=== PATIENT | male | born 1930 | race Caucasian/White ===

== ENCOUNTER 2017-05-21 13:54 | Emergency (ER) | payer MEDICARE, OTHER ==
[2017-05-21 14:38] LABS: #Eosinphils 0.2 thou/uL (0.0-0.7); #Lymphocytes 2.3 thou/uL (1.20-3.40); #Monocytes 0.8 thou/uL (0.11-0.59); #Neutrophils 4.9 thou/uL (1.40-6.50); %Basophils 0.4 % (0.0-1.0); %Eosinophils 2.5 % (0.0-10.0); %Lymphocytes 28.1 % (21.0-51.0); %Monocytes 10.1 % (0.0-10.0); %Neutrophils 58.9 % (42.0-75.0); Hemoglobin 13.8 g/dL (14.0-18.0); Mean Corpuscular Hemoglobin 32.5 pg (27.0-31.0); Mean Platelet Volume 7.7 fL (7.4-10.4); Platelet Count 173 thou/uL (130-400); Red Blood Cell (RBC) Count 4.27 mill/uL (4.70-6.10); White Blood Cell (WBC) Count 8.3 thou/uL (4.8-10.8)
[2017-05-21 14:43] LABS: PTT 44.8 SEC (22.9-36.1)
[2017-05-21 14:56] LABS: ALT (SGPT) 12 U/L (8-55); AST (SGOT) 21 U/L (5-34); Albumin 3.6 g/dL (3.4-4.8); Alkaline Phosphatase 78 U/L (40-150); Anion Gap 11 mmol/L (10-20); BUN (Urea Nitrogen) 18 mg/dL (8.4-25.7); Bilirubin, Total 1.4 mg/dL (0.2-1.2); Calc. Creatinine Clearance 0 mL/min (70-130); Calcium 9.2 mg/dL (7.8-10.44); Carbon Dioxide 26 mmol/L (23-31); Chloride 109 mmol/L (98-107); Estimated GFR-MDRD 48; Globulin 3.1 g/dL (2.4-3.5); Glucose 100 mg/dL (83-110); Potassium 4.8 mmol/L (3.5-5.1); Protein, Total 6.7 g/dL (5.8-8.1); Sodium 141 mmol/L (136-145)
--- NOTE | 2017-05-21 15:09 | ULT ---
RIGHT UPPER EXTREMITY VENOUS DUPLEX SONOGRAM: History: Right arm pain and edema. Bruising. FINDINGS: Good color and spectral doppler flow are present within the internal jugular and subclavian veins and the brachial and axillary veins. The cephalic and basilic veins are compressible without evidence of clot. IMPRESSION: No sonographic evidence of DVT within the right upper extremity. POS: [facility]
[2017-05-21] MEDS ORDERED: Bacitracin Zinc 1 Packet ONE (16:04)
[2017-05-21] MEDS ORDERED: Phytonadione 10 MG/ML AMP PO SCH (16:15)
== END 2017-05-21 16:37 | disposition home or self-care (01) ==
LOC: ERS 13:54
DX: S50.11XA Contusion of right forearm, initial encounter (principal); E78.5 Hyperlipidemia, unspecified; I10 Essential (primary) hypertension; X58.XXXA Exposure to other specified factors, initial encounter; D68.32 Hemorrhagic disorder due to extrinsic circulating anticoagulants; T45.515A Adverse effect of anticoagulants, initial encounter; M79.601 Pain in right arm
CPT/HCPCS: 36415; 80053; 85025; 85610; 85730; J3430

== ENCOUNTER 2017-12-09 08:46 | Inpatient (IN) | payer MEDICARE, OTHER ==
--- NOTE | 2017-12-09 09:28 | RAD ---
AP CHEST: Indication: History of shortness of breath. Comparison: 11-29-15 FINDINGS: There is cardiomegaly with pulmonary vascular congestion and mild central edema. There is small bilat eral pleural effusion. Dual-lead pacemaker overlies the left chest wall. No acute osseous abnormality is evident. IMPRESSION: Findings suggestive of CHF. POS: [facility]
[2017-12-09 09:30] LABS: #Eosinphils 0.1 thou/uL (0.0-0.7); #Lymphocytes 1.8 thou/uL (1.20-3.40); #Monocytes 0.7 thou/uL (0.11-0.59); #Neutrophils 5.6 thou/uL (1.40-6.50); %Basophils 0.5 % (0.0-1.0); %Eosinophils 1.8 % (0.0-10.0); %Lymphocytes 21.4 % (21.0-51.0); %Monocytes 8.1 % (0.0-10.0); %Neutrophils 68.3 % (42.0-75.0); Hemoglobin 14.6 g/dL (14.0-18.0); Mean Corpuscular HGB CONC 31.6 g/dL (32.0-36.0); Mean Platelet Volume 8.3 fL (7.4-10.4); Platelet Count 150 thou/uL (130-400); RBC Distribution Width 12.8 % (11.5-14.5); Red Blood Cell (RBC) Count 4.42 mill/uL (4.70-6.10); White Blood Cell (WBC) Count 8.3 thou/uL (4.8-10.8)
[2017-12-09 09:51] LABS: CKMB 3.8 ng/mL (0-6.6); Troponin I Less than 0.010 ng/mL (< 0.028)
[2017-12-09 09:56] LABS: ALT (SGPT) 23 U/L (8-55); AST (SGOT) 32 U/L (5-34); Albumin 3.6 g/dL (3.4-4.8); Alkaline Phosphatase 87 U/L (40-150); Anion Gap 15 mmol/L (10-20); BUN (Urea Nitrogen) 14 mg/dL (8.4-25.7); Bilirubin, Total 1.7 mg/dL (0.2-1.2); Calc. Creatinine Clearance 0 mL/min (70-130); Calcium 8.8 mg/dL (7.8-10.44); Carbon Dioxide 18 mmol/L (23-31); Chloride 112 mmol/L (98-107); Estimated GFR-MDRD 54; Globulin 3.2 g/dL (2.4-3.5); Glucose 112 mg/dL (83-110); Potassium 4.4 mmol/L (3.5-5.1); Protein, Total 6.8 g/dL (5.8-8.1); Sodium 141 mmol/L (136-145)
[2017-12-09] MEDS ORDERED: Furosemide 40 MG/4 ML VIAL ONE (09:57)
[2017-12-09] MEDS ORDERED: Nitroglycerin 2% Ointment 1 INCH/1 GM Packet ONE (09:57)
[2017-12-09 12:57] VITALS: BMI 36.6
[2017-12-09] MEDS ORDERED: Acetaminophen 500 MG TAB PO PRN (14:06)
[2017-12-09] MEDS ORDERED: Ondansetron HCl/PF 4 MG/2 ML Vial IVP PRN (14:06)
[2017-12-09] MEDS ORDERED: Ondansetron ODT 4 MG TAB PO PRN (14:06)
[2017-12-09] MEDS ORDERED: cloNIDine 0.1 MG TAB PO PRN (14:06)
[2017-12-09] MEDS ORDERED: hydrALAZINE 20 MG/ML VIAL SLOW IVP PRN (14:06)
[2017-12-09] MEDS: Furosemide 40 MG/4 ML VIAL SLOW IVP SCH (15:11)
--- NOTE | 2017-12-09 15:21 | HP ---
PRIMARY CARE PROVIDER: Dr. Brittni High at [facility]. PRIMARY HEDDLE MACHINE OPERATOR: Dr. Torrey Duenas. CHIEF COMPLAINT: Shortness of breath and lower extremity swelling. HISTORY OF PRESENT ILLNESS: This is an 87-year-old male who presented to [facility] Emergency Department complaining of approximately 3-4 day history of increased shor tness of breath, decreased exercise tolerance and associated lower extremity edema. The patient stat es he normally can walk up to 100 yards at his home, but over the last several days could only do mario roximately 20 yards before becoming extremely short of breath. The patient admitted to mainly nonpro ductive cough. No fever, chills or exposure history. The patient states he has a home prescription for Lasix to be used as needed for lower extremity swelling, but states he did not take the medicatio n when he noticed swelling of his lower legs. The patient admits to history of atrial fibrillation, undergoing pacemaker placement with most recent cardiology visit in 03/2017. The patient underwent e chocardiogram evaluation during this visit showing a preserved ejection fraction of 50%-55%. The pat ient also underwent interrogation of his pacemaker device showing atrial fibrillation approximately 6 0% of the time. The patient was increased on flecainide as well as placed on anticoagulation with Co umadin. The patient states he has been compliant with his medication regimen. The patient denied an y specific dietary indiscretion, but does states that he drinks large quantities of water. The patie nt denies any nausea, vomiting or diarrhea. The patient denied any specific chest pain, unilateral w eakness, or dysuria. In the emergency room, the patient underwent general evaluation with chest imag ing showing pulmonary edema. The patient received IV Lasix and transdermal nitroglycerin after eleva blanche BNP over 1700 was noted. The patient was transferred to the telemetry unit for further evaluatio n. PAST MEDICAL HISTORY: 1. Atrial fibrillation on antiarrhythmic and anticoagulation therapy. 2. Hypertension. 3. Hyperlipidemia. 4. Sick sinus syndrome, status post pacemaker placement. PAST SURGICAL HISTORY: 1. Status post pacemaker placement. 2. Status post left total hip arthroplasty. 3. Status post hemicolectomy secondary to diverticulitis. 4. Status post hernia repair. 5. Status post EGD/colonoscopy with Medel's metaplasia. CURRENT MEDICATIONS: 1. Enteric coated aspirin 81 mg p.o. at bedtime. 2. Lipitor 20 mg p.o. at bedtime. 3. Coreg 25 mg p.o. b.i.d. 4. Flecainide 100 mg p.o. b.i.d. 5. Lasix 20 mg p.o. b.i.d. 6. Lisinopril 20 mg p.o. b.i.d. 7. Protonix 40 mg p.o. daily. 8. Potassium chloride 10 mEq p.o. daily. 9. Coumadin 5 mg half a tab every Saturday, Saturday, , Saturday, and Saturday with 5 mg on and Saturday. ALLERGIES: No known drug allergies. FAMILY HISTORY: Father with history of an aneurysm. Mother of complications of old age. SOCIAL HISTORY: Patient resides in [place], [place]. . Uses smokeless tobacco weekly. Ambula tory with use of a cane. No alcohol or illicit drug use. REVIEW OF SYSTEMS: The following complete review of systems was negative, unless otherwise mentioned in the HPI or below: Constitutional: Weight loss or gain, ability to conduct usual activities. Skin: Rash, itching. Eyes: Double vision, pain. ENT/Mouth: Nose bleeding, neck stiffness, pain, tenderness. Cardiovascular: Palpitations, dyspnea on exertion, orthopnea. Respiratory: Shortness of breath, wheezing, cough, hemoptysis, fever or night sweats. Gastrointestinal: Poor appetite, abdominal pain, heartburn, nausea, vomiting, constipation, or diarr hea. Genitourinary: Urgency, frequency, dysuria, nocturia. Musculoskeletal: Pain, swelling. Neurologic/Psychiatric: Anxiety, depression. Allergy/Immunologic: Skin rash, bleeding tendency. Otherwise negative except as stated per HPI. PHYSICAL EXAMINATION: VITAL SIGNS: On admission, blood pressure 152/96, pulse 75, respiratory rate 22, temperature 97.3 de grees Fahrenheit, O2 saturation 98% on 2 liters per minute by nasal cannula. GENERAL APPEARANCE: This is an 87-year-old male, alert and oriented x3, pleasant, conversa nt, in mild respiratory distress. HEENT: Pupils are equal, round, and reactive to light and accommodation. Extraocular muscles are in tact. No scleral icterus, no conjunctival injection. Nares patent. OP is clear. Teeth in fair rep air. NECK: Supple, no cervical adenopathy, no thyromegaly, no carotid bruits, no JVD appreciated. Cervic al spine with full active and passive range of motion. No meningeal signs appreciated. CHEST: Bibasilar crackles. Diminished breath sounds in the bases. CARDIOVASCULAR: S1, S2 with distant heart sounds. ABDOMEN: Obese, soft, nontender, nondistended. Landmarks are difficult to palpate due to patient's body habitus. Bowel sounds are positive in all four quadrants. EXTREMITIES: Bilateral pitting edema to the proximal shins. Pulses palpable distally at the dorsali s pedis, posterior tibial, and popliteal arteries bilaterally. Capillary refill less than 2 seconds. NEUROLOGIC: Cranial nerves II-XII are grossly intact. No focal or lateralizing signs appreciated. PERTINENT LABORATORY DATA AND IMAGING DATA: Sodium 141, potassium 4.4, chloride 112, CO2 of 18, BUN 14, creatinine 1.26 with estimated GFR 54, glucose 112, calcium 8.8, total bilirubin 1.7, AST 32, ALT of 23, alkaline phosphatase 87, troponin I 0.010. BNP 1796 previously noted 188, 06/04/2001; 220 in 2017. CBC showed a white blood cell count of 8.3, hemoglobin 14.6, hematocrit 46, MCV 105, platelet count 150 with normal differential. D-dimer 0.58. Portable chest x-ray dated 12/09/2017 showed luz marina ateral pulmonary edema. Dual lead pacemaker noted. EKG dated 12/09/2017 by my interpretation shows atrial fibrillation with heart rates in the 90s. Left bundle branch block pattern noted. ASSESSMENT AND PLAN: 1. Acute congestive heart failure exacerbation. Suspect diastolic component in conjunction with his tory of atrial fibrillation as underlying etiology. We will repeat 2D transthoracic echocardiogram t o assess ejection fraction. Continue Lasix 40 mg IV b.i.d. Consult Cardiology Service for further e valuation and recommendations for management. 2. Sick sinus syndrome with pacemaker placement. We will interrogate current pacemaker device for r eview of underlying rhythm. The patient may need additional evaluation by Electrophysiology Service if high percentage of rhythm related to atrial fibrillation. Continue telemetry monitoring. 3. Atrial fibrillation with chronic anticoagulation. We will continue Coumadin to maintain INR of 2 -3. Continue Flecainide 100 mg p.o. b.i.d. 4. Hypertension. Resume home antihypertensive regimen and monitor clinical response. 5. Chronic kidney disease stage 3. Avoid nephrotoxic agents and limit contrast exposure. Continue close monitoring of renal function in the context of ongoing diuretic therapy. 6. Prophylaxis. Sequential compression devices while in bed. Pepcid 20 mg p.o. b.i.d. 7. Code status is FULL. Surrogate medical decision maker is patient's spouse.
[2017-12-09 15:31] LABS: Prothrombin Time 38.6 SEC (12.0-14.7)
[2017-12-09] MEDS ORDERED: Warfarin Sodium 2.5 MG TAB PO SCH (17:00)
--- NOTE | 2017-12-09 18:48 | CON ---
DATE OF CONSULTATION: 12/09/2017 REASON FOR CONSULTATION: Shortness of breath. PRIMARY IC DESIGN MANAGER: Dr. Torrey Duenas. HISTORY OF PRESENT ILLNESS: Mr. Saavedra is an 87-year-old gentleman who has been seen and evaluated by Dr. Torrey Duenas. He has a history of atrial fibrillation in addition to sick sinus syndrome, status p ost pacemaker. He recently presented with shortness of breath. He states this has slowly been noted over the last several days to weeks. He also complained of lower extremity edema, PND, and orthopne a. Patient does have a history of paroxysmal atrial fibrillation. He is currently on Coumadin in additi on to flecainide. PAST MEDICAL HISTORY: As above, hypertension, hyperlipidemia, total hip arthroplasty, and hernia rep air. MEDICATIONS: Lipitor, Coreg, flecainide, Lasix, lisinopril, Protonix, potassium, Coumadin, and aspir in. ALLERGIES: None. SOCIAL HISTORY: He is currently . No current alcohol use. REVIEW OF SYSTEMS: Ten-point review of systems is reviewed and as above, otherwise negative. PHYSICAL EXAMINATION: GENERAL: The patient is obese. VITAL SIGNS: Blood pressure 140/81, pulse 74, temperature 97.7. NEUROLOGIC: The patient is alert and oriented times 3 with no focal neurologic deficits. HEENT: Sclerae without icterus. Mouth has moist mucous membranes with normal pallor. NECK: No JVD. Carotid upstroke brisk. No bruits bilaterally. LUNGS: Crackles noted bilaterally. BACK: No scoliosis or kyphosis. CARDIAC: Regular rate and rhythm with normal S1 and S2. No S3 or S4 noted. No significant rubs, murmurs, thrills, or gallops noted throughout the precordium. PMI is not displaced. There is no parasternal heave. ABDOMEN: Soft, nontender, nondistended. No peritoneal signs present. No hepatosplenomegaly. No abnormal striae. EXTREMITIES: 2+ femoral and 2+ dorsalis pedis pulses. No cyanosis, clubbing, or edema. SKIN: No gross abnormalities. PERTINENT LABORATORY DATA: Hemoglobin 14.6, creatinine 1.26, BNP of 1796. IMPRESSION: 1. Acute on chronic diastolic heart failure. 2. Atrial fibrillation. RECOMMENDATIONS: Mr. Saavedra's last LVEF appeared normal. This is likely a component of diastolic dys function. We will need education on low salt diet and decrease fluid intake. He is currently on Las ix 40 mg IV b.i.d. We will interrogate his pacemaker. Further recommendations per Dr. Torrey Duenas in a.m.
[2017-12-09] MEDS ORDERED: Famotidine 20 MG TAB PO SCH (21:00)
[2017-12-09] MEDS: Famotidine 20 MG TAB PO SCH (21:12)
[2017-12-09] MEDS: Flecainide 50 MG TAB PO SCH (21:12)
[2017-12-09] MEDS: Carvedilol 25 MG TAB PO SCH (21:12)
[2017-12-09] MEDS: Atorvastatin Calcium 20 MG TAB PO SCH (21:12)
[2017-12-09] MEDS: Lisinopril 20 MG TAB PO SCH (21:13)
[2017-12-09 23:18] LABS: Platelet Count 143 thou/uL (130-400)
[2017-12-10 05:38] LABS: INR-International Normal Ratio 3.7; Prothrombin Time 36.4 SEC (12.0-14.7)
[2017-12-10 05:44] LABS: Anion Gap 11 mmol/L (10-20); BUN (Urea Nitrogen) 17 mg/dL (8.4-25.7); Calc. Creatinine Clearance 63 mL/min (70-130); Calcium 8.5 mg/dL (7.8-10.44); Carbon Dioxide 25 mmol/L (23-31); Chloride 110 mmol/L (98-107); Estimated GFR-MDRD 53; Glucose 89 mg/dL (83-110); Magnesium 1.6 mg/dL (1.6-2.6); Potassium 3.8 mmol/L (3.5-5.1); Sodium 142 mmol/L (136-145)
[2017-12-10 05:49] LABS: Band 5 % (5-11); Eosinophils 4 % (0-10); Hemoglobin 13.3 g/dL (14.0-18.0); Lymphocytes 18 % (21-51); MDiff Complete? YES; Mean Corpuscular HGB CONC 31.8 g/dL (32.0-36.0); Mean Corpuscular Hemoglobin 32.5 pg (27.0-31.0); Mean Platelet Volume 8.1 fL (7.4-10.4); Monocytes 4 % (0-10); Neutrophil 69 % (42-75); PLT Morphology Comment Appears Adequate; Platelet Count 136 thou/uL (130-400); RBC Distribution Width 12.8 % (11.5-14.5); Red Blood Cell (RBC) Count 4.08 mill/uL (4.70-6.10); White Blood Cell (WBC) Count 7.9 thou/uL (4.8-10.8)
[2017-12-10] MEDS: Furosemide 40 MG/4 ML VIAL SLOW IVP SCH ×2 (06:40→13:45)
--- NOTE | 2017-12-10 08:47 | PDOC.CTH ---
<Susana Spivey - Last Filed: 12/10/17 08:42> Cardiology Progress Note - Subjective The pt seen and examined. No overnight events. No cardiac complaints. He stated he can breath better today. He never been referred to CHF clinic before. - Objective Vital Signs Temp Pulse Resp BP BP Pulse Ox 12/10/17 04:00 98.5 F 75 18 118/72 95 12/09/17 21:13 126/79 Weight 233 lb 12/09/17 12/10/17 12/11/17 06:59 06:59 06:59 Intake Total 480 Output Total 2675 Balance -2195 - Physical Examination General/Neuro: alert & oriented x3 Neck: no JVD present Lungs: other: (diminished at bases) Heart: other: (irregular) Abdomen: soft Extremities: other: (No edema) - Telemetry Telemetry Rhythm: Afib with HR 80s - Labs Result Diagrams: 12/10/17 05:16 12/10/17 05:16 Troponin/CKMB CK-MB (CK-2) 3.8 ng/mL (0-6.6) 12/09/17 09:04 Troponin I Less than 0.010 ng/mL (< 0.028) 12/09/17 09:04 - Assessment/Plan 1. Acute on Chronic diastolic HF - Improving with Lasix 40mg IV BID, Coreg 25mg BId, and Lisinopril 20mg BID. Cont. to monitor. 2. Afib - well controlled HR with Flecainide 100mg BID and Coumadin, which managed by PCP. ASA is stopped since he is on Coumadin and his age. 3. HTN - stable with current med. 4. PM placement 05/17 SSS - recent interrogation showed normal. 5. Hyperlipidemia - on Lipitor MAR reviewed * Echo in 03/2017 showed EF 55%, mild LAE, mild AI, mild-mod TR, mild PI, and trace MR. * Stress test in 2016 showed normal. Review of Systems - Review of Systems Constitutional: reports: weakness EENTM: reports: no symptoms reported Respiratory: reports: no symptoms reported Cardiac (ROS): reports: no symptoms reported ABD/GI: reports: no symptoms reported : reports: no symptoms reported Musculoskeletal: reports: no symptoms reported <Bernice Duenas - Last Filed: 12/10/17 10:28> Cardiology Progress Note - Objective Vital Signs Temp Pulse Resp BP Pulse Ox 12/10/17 04:00 98.5 F 75 18 118/72 95 Weight 233 lb 12/09/17 12/10/17 12/11/17 06:59 06:59 06:59 Intake Total 480 Output Total 2675 Balance -2195 - Labs Result Diagrams: 12/10/17 05:16 12/10/17 05:16 Troponin/CKMB CK-MB (CK-2) 3.8 ng/mL (0-6.6) 12/09/17 09:04 Troponin I Less than 0.010 ng/mL (< 0.028) 12/09/17 09:04 - Assessment/Plan Pt. seen and eval. by me. He is feeling better after some diuresis. Further review indicates normal pacemaker function on the last transtelephnic eval. in October but it appears that he is in chronic atrial fibrillation and occasionallly has increased ventricular response to the A-fib. He has remained on coumadin but it does not appear that the Flecainide if beneficial. The atrial fib. likely has contributed to tis CHF event. He has not had a diagnosis of CAD of diastolic dysfunction or failure in the past. Repeat echo is pending. The options may be cardioversion, EP eval. for ablation , upgrade to bi_V pacemaker ( if the EF is decreased) or rate control with beta-blockers. I will discuss his case with EP after I review the echo.. Chest: few basila right rales. RRR, pacing. Mild edema.
[2017-12-10] MEDS ORDERED: Aspirin 81 mg Enteric Coated Tablet PO SCH (09:00)
[2017-12-10] MEDS: Flecainide 50 MG TAB PO SCH ×2 (10:21→20:12)
[2017-12-10] MEDS: Potassium Chloride 10 MEQ TAB PO SCH (10:21)
[2017-12-10] MEDS: Carvedilol 25 MG TAB PO SCH ×2 (10:21→20:12)
[2017-12-10] MEDS: Lisinopril 20 MG TAB PO SCH ×2 (10:21→20:12)
--- NOTE | 2017-12-10 16:14 | PDOC.PN ---
- Subjective Encounter Start Date: 12/10/17 Encounter Start Time: 15:45 Subjective: f/u for acute diast CHF on current Lasix and SSS with PM. Had PM -: interrogated due to concern for atrial fibrillation. SOB much less. -: Weight down ?7lbs since admit. - Objective Resuscitation Status: Resuscitation Status FULL:Full Resuscitation MAR Reviewed: Yes Vital Signs & Weight: Vital Signs (12 hours) Temp Pulse Resp BP Pulse Ox 12/10/17 13:46 97.8 F 71 18 136/72 98 12/10/17 10:17 98.9 F 63 18 129/70 92 L 12/10/17 08:11 98.9 F 63 18 92 L Weight Weight 233 lb I&O: 12/09/17 12/10/17 12/11/17 06:59 06:59 06:59 Intake Total 480 Output Total 2675 Balance -2195 Result Diagrams: 12/10/17 05:16 12/10/17 05:16 Additional Labs: Laboratory Tests 12/09/17 12/09/17 12/10/17 09:03 15:18 05:16 INR 4.0 3.7 B-Natriuretic Peptide 1796.0 H TSH 3rd Generation 12/10/17 12/10/17 05:16 05:16 INR B-Natriuretic Peptide 1111.9 H TSH 3rd Generation 1.1721 Radiology Reviewed by me: Yes (2D echo - pending) EKG Reviewed by me: Yes (Tele - A-fib/paced) Phys Exam - Physical Examination Constitutional: NAD HEENT: PERRLA, sclera anicteric, oral pharynx no lesions Neck: no nodes, no JVD, supple, full ROM few bibasilar crackles Respiratory: no wheezing heart sounds distant Cardiovascular: no rub, gallop, irregular Gastrointestinal: soft, non-tender, no distention, positive bowel sounds Musculoskeletal: pulses present, edema present Neurological: normal sensation, moves all 4 limbs Psychiatric: A&O x 3 Skin: no rash, normal turgor, cap refill <2 seconds Dx/Plan (1) Acute on chronic diastolic CHF (congestive heart failure) Code(s): I50.33 - ACUTE ON CHRONIC DIASTOLIC (CONGESTIVE) HEART FAILURE Status : Acute Comment: Continue Lasix 40mg IV BID, await repeat 2D echo, likely due to atrial fibrillation, appreciate Cardiology assistance (2) Sick sinus syndrome Code(s): I49.5 - SICK SINUS SYNDROME Status: Chronic Comment: PM interrogation today, EP evaluation pending (3) Atrial fibrillation Code(s): I48.91 - UNSPECIFIED ATRIAL FIBRILLATION Status: Chronic Qualifiers: Atrial fibrillation type: chronic Qualified Code(s): I48.2 - Chronic atrial fibrillation Comment: Likely factor underlying pulm edema, EP evaluating for potential ablation, may need Bi-V PM upgrade, continue anticoagulation with Coumdain (4) Hypertension Code(s): I10 - ESSENTIAL (PRIMARY) HYPERTENSION Status: Chronic Qualifiers: Hypertension type: essential hypertension Qualified Code(s): I10 - Essential (primary) hypertension Comment: Continue Coreg and Lisinopril, serial monitoring (5) CKD (chronic kidney disease), stage III Code(s): N18.3 - CHRONIC KIDNEY DISEASE, STAGE 3 (MODERATE) Status: Chronic Comment: Avoid nephrotoxic meds and limit contrast exposure - Plan plan discussed w/ family, PT/OT, social media analyst, out of bed/ambulate, DVT proph w/SCDs Stable overall -: PM interrogation today -: EP evaluation for potential ablation or PM upgrade -: Continue Coreg 25mg BID -: Continue Lasix 40mg IV BID * AM lab: BMP, PT/INR, H/H
[2017-12-10] MEDS: Atorvastatin Calcium 20 MG TAB PO SCH (20:12)
[2017-12-10] MEDS: Famotidine 20 MG TAB PO SCH (20:12)
[2017-12-11] MEDS: Furosemide 40 MG/4 ML VIAL SLOW IVP SCH ×2 (06:07→14:38)
[2017-12-11 06:45] LABS: Anion Gap 14 mmol/L (10-20); BUN (Urea Nitrogen) 19 mg/dL (8.4-25.7); Calc. Creatinine Clearance 62 mL/min (70-130); Calcium 8.7 mg/dL (7.8-10.44); Carbon Dioxide 25 mmol/L (23-31); Chloride 107 mmol/L (98-107); Estimated GFR-MDRD 54; Glucose 85 mg/dL (83-110); Potassium 3.8 mmol/L (3.5-5.1); Sodium 142 mmol/L (136-145)
--- NOTE | 2017-12-11 07:34 | CON ---
DATE OF CONSULTATION: 12/10/2017 ELECTROPHYSIOLOGY CONSULTATION REPORT REFERRING PHYSICIAN: Majo Duenas M.D. HISTORY OF PRESENT ILLNESS: I am seeing Mr. Saavedra at our [facility] telemetry floor as electrophysiology business development consultant. His problems are: 1. Persistent atrial fibrillation/atypical atrial flutter. A. Prior document of atrial fibrillation previously suppressed with a flecainide , but now more frequent recurrence. 2. Acute on chronic diastolic heart failure. A. Prior echocardiogram from 03/28/2017 with a 50%-55%, mild left atrial enlargement, mild to moderate tricuspid regurgitation. 3. History of sinus node disease status post dual-chamber pacemaker implantation back in 1998. Most recent generator is a Medtronic Adapta device replaced in 03/2013. A. Interrogation reveals frequent recurrent ventricular pacing. 4. Left bundle branch block. 5. Risk factors of hypertension and hyperlipidemia. 6. Chronic kidney disease stage 3. ALLERGIES: None noted. MEDICATIONS AT HOME: Included lisinopril 20 mg twice a day, carvedilol 25 mg twice a day, aspirin 81 daily, furosemide 20 mg twice a day, warfarin 5 mg as directed, potassium chloride 10 mEq daily, pantoprazole 40 mg daily, atorvastatin 20 mg p.o. at bedtime. SUBJECTIVE: Mr. Saavedra is here with progressive dyspnea. He had more difficulty to get around and lay down, hence came to the ER, he was evaluated by Dr. Duenas and Dr. Newton and indeed he was found to be in fluid overload, elevated BNP and diuresis started. I was consulted, hence the increasing frequency of atrial fibrillation noted on pacemaker interrogation. PAST MEDICAL HISTORY: As above. SOCIAL HISTORY: Patient resides in [place], [place]. Use smokeless tobacco weekly. Denies ETOH or drug abuse. FAMILY HISTORY: Significant for aneurysm. Mother of complication of old age. OBJECTIVE: VITAL SIGNS: Blood pressure is 136/72, respiration is 18, temperature 97.8 degrees Fahrenheit. GENERAL: He is alert and oriented man in no apparent distress. NECK: Supple. Jugular veins distended. CHEST: Coarse, no crackles at this time. CARDIOVASCULAR: Heart sounds are regular to rate and rhythm. No murmur or gallop. ABDOMEN: Benign. Bowel sounds positive. EXTREMITIES: Lower extremity with 1+ edema bilaterally clubbing, cyanosis are not noted. NEUROLOGIC: Patient nonfocal. MUSCULOSKELETAL: No joint swelling or deformities. SKIN: Without rash. Left precordial pacing insertion site is well healed. DATABASE: Chest x-ray shows findings of CHF, small bilateral pleural effusion are noted on admission. EKG initially reveals atrial fibrillation/flutter with variable AV conduction, left bundle branch block. Subsequent telemetry also reveals back into ventricular rates. Interrogation of her device reveals a Medtronic Adapta dual chamber device with battery longevity 6 years. Lead parameters are adequate, although previous sensing are borderline low at millivolts respectively. Occasional undersensing atrial leads are seen during the EGM. The patient seems to have long periods of atrial fibrillation with long periods of mode switch since 10/13/2017, ongoing atrial fibrillation is seen. Ventricular rate seems to be controlled. In fact, the patient is about 40% ventricular paced. LABORATORY DATA: White count 7.9, hemoglobin 13.3, platelet count is 136. INR 3.7. Sodium 142, potassium 3.8, BUN is 17, creatinine is 1.29. The BNP initially 1796. TSH 1.17. Troponins are 0.01. ASSESSMENT AND PLAN: Ms. Saavedra is an 87-year-old man with history of sinus node disease. A dual chamber pacemaker implantation in the past was paroxysmal atrial fibrillation, previously well suppressed with flecainide, but now more recently he has persistent atrial fibrillation despite ongoing flecainide therapy. He also has left bundle branch block and significant ventricular pacing by his pacemaker. New finding this admission is the congestive heart failure, fluid overload. 1. Acute congestive heart failure, fluid overload, etiology unclear. Possibly left ventricular dyssynchrony, especially as the left ventricular dysfunction is present, could likely contribute to this. If indeed left ventricular dysfunction present, BiV pacemaker upgrade could be very reasonable for this gentleman. 2. Ongoing atrial fibrillation persisting despite flecainide therapy. Consideration for cardioversion could be made after volume optimization, but recurrence is very possible. Alternative antiarrhythmic agents like amiodarone could be considered, although with potential toxic side effects. Pulmonary venous isolation is also a remote possibility, although higher risk in this elderly gentleman. 3. Chronic anticoagulation with a CHADS VASc score of 4 due to age, hypertension, and congestive heart failure, currently on warfarin somewhat over- anticoagulated, would hold for now. My plan would be at this point to evaluate LV function. If LV function shows LV dyssynchrony, consider biventricular pacemaker upgrade. For this reason, I would hold warfarin at this time. If the LV function, though is normal, optimize volume status and consider amiodarone therapy short term and/or ablation therapy as an outpatient. We will follow up with you. Thank you for allowing me to participate in care of this patient. FANTA
[2017-12-11] MEDS ORDERED: Senokot 8.6 MG TAB PO PRN (08:55)
[2017-12-11] MEDS ORDERED: Chloraseptic Spray 180 ml Bottle PO PRN (08:55)
[2017-12-11] MEDS ORDERED: Loratadine 10 MG TAB PO PRN (08:55)
[2017-12-11] MEDS ORDERED: Milk Of Magnesia 30 ML UDCUP PO PRN (08:55)
[2017-12-11] MEDS ORDERED: Mag-Al 1200 mg/1200 mg/30 ML UDCUP PO PRN (08:55)
[2017-12-11] MEDS ORDERED: Loperamide HCl 2 MG CAP PO PRN (08:55)
[2017-12-11] MEDS ORDERED: Temazepam 15 MG CAP PO PRN (08:55)
[2017-12-11] MEDS ORDERED: Sodium Chloride 0.65% Nasal 44 ML BOT EA NARE PRN (08:55)
[2017-12-11] MEDS ORDERED: Artificial Tears 18 DROP/0.9 ML EA EYE PRN (08:55)
[2017-12-11] MEDS ORDERED: Diabetic Tussin 200 MG/10 ML UDCUP PO PRN (08:55)
[2017-12-11] MEDS ORDERED: Eucerin (Mineral Oil/Petrolatum,White) 30 gm Jar TOP PRN (08:55)
--- NOTE | 2017-12-11 09:17 | PRG ---
DATE OF SERVICE: 12/11/2017 SUBJECTIVE: Mr. Saavedra seems to be doing fair, although still short of breath this morning. OBJECTIVE: VITAL SIGNS: Blood pressure is 142/79, heart rate 70, respiration is 18, temperature 98.8 degrees Fa hrenheit. The ins and outs reveals -900 mL over the last 24 hours. GENERAL: Alert and oriented man with elevated BMI. NECK: Supple. Jugular veins still distended. CHEST: Coarse, few crackles. CARDIOVASCULAR: Heart sounds are regular to rate and rhythm. I do not hear a gallop or a murmur. ABDOMEN: Benign. Bowel sounds positive. Left precordial pacing insertion site is well healed. Abd omen is benign. EXTREMITIES: Lower extremities with 1+ bilateral edema, no cyanosis. Telemetry strips reveals continued atrial fibrillation with intermittent ventricular pacing. Left bu ndle branch block complex is ____ nonpaced, QRSs are seen. ASSESSMENT AND PLAN: Mr. Saavedra is a very pleasant 87-year-old gentleman with a long history of diast olic heart failure and atrial fibrillation managed with flecainide. He came in with a heart failure exacerbation. His pacing duration does reveal continued atrial fibrillation for a number of months d espite that continued to flecainide therapy. He was over anticoagulated with Coumadin, currently on hold. I discussed with Dr. Duenas, this gentleman may benefit from a biventricular pacemaker upgrade e specially with LV dysfunction is documented on his echocardiogram, results pending today. Alternativ e treatment options for his atrial fibrillation would be switching him to a more potent antiarrhythmi c, could only be amiodarone, rate control only versus considering pulmonary venous isolation procedur e for him. We will follow with you.
[2017-12-11] MEDS: Flecainide 50 MG TAB PO SCH ×2 (09:26→20:29)
[2017-12-11] MEDS: Potassium Chloride 10 MEQ TAB PO SCH (09:26)
[2017-12-11] MEDS: Carvedilol 25 MG TAB PO SCH ×2 (09:26→20:30)
[2017-12-11] MEDS: Lisinopril 20 MG TAB PO SCH ×2 (09:26→20:29)
--- NOTE | 2017-12-11 11:13 | PDOC.CTH ---
<Susana Spivey - Last Filed: 12/11/17 11:12> Cardiology Progress Note - Subjective The pt seen and examined. No overnight events. No cardiac complaints. - Objective Vital Signs Temp Pulse Resp BP BP BP Pulse Ox 12/11/17 07:55 98.8 F 72 18 95 12/11/17 07:53 98.8 F 72 18 142/79 H 95 12/11/17 04:00 98.6 F 78 20 138/69 93 L 12/10/17 23:43 98.4 F 65 15 113/65 96 Weight 225 lb 11.2 oz 12/10/17 12/11/17 12/12/17 06:59 06:59 06:59 Intake Total 480 324 Output Total 2675 1200 Balance -8661 -636 - Physical Examination General/Neuro: alert & oriented x3 Neck: no JVD present Lungs: CTA Heart: other: (irregular) Abdomen: soft Extremities: other: (No edema) - Telemetry Telemetry Rhythm: Afib with intermittent AV paced - Labs Result Diagrams: 12/10/17 05:16 12/11/17 05:41 Troponin/CKMB CK-MB (CK-2) 3.8 ng/mL (0-6.6) 12/09/17 09:04 Troponin I Less than 0.010 ng/mL (< 0.028) 12/09/17 09:04 - Assessment/Plan 1. 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 Echo on 12/10/17 showed EF 25-30% due to chronic afib. Possible BiV PM/AICD or Ablation by Dr Davis. Cont. to monitor. 2. Chronic Afib - well controlled HR with Flecainide 100mg BID. Coumadin is on hold for high INR and possible PM/AICD placement. 3. HTN - stable with current med. 4. PM placement 05/17 SSS - recent interrogation showed normal. 5. Hyperlipidemia - on Lipitor MAR reviewed * Echo in 03/2017 showed EF 55%, mild LAE, mild AI, mild-mod TR, mild PI, and trace MR. * Stress test in 2016 showed normal. Review of Systems - Review of Systems Constitutional: reports: no symptoms reported EENTM: reports: no symptoms reported Respiratory: reports: no symptoms reported Cardiac (ROS): reports: no symptoms reported ABD/GI: reports: no symptoms reported : reports: no symptoms reported Musculoskeletal: reports: no symptoms reported <Bernice Duenas - Last Filed: 12/11/17 16:28> Cardiology Progress Note - Objective Vital Signs Temp Pulse Pulse Pulse Resp BP BP 12/11/17 15:52 97.5 F L 67 18 12/11/17 12:27 97.7 F 66 16 12/11/17 10:13 88 71 122/71 135/69 12/11/17 07:55 98.8 F 72 18 12/11/17 07:53 98.8 F 72 18 BP Pulse Ox Pulse Ox Pulse Ox 12/11/17 15:52 142/83 H 94 L 12/11/17 12:27 140/74 94 L 12/11/17 10:13 99 91 L 12/11/17 07:55 95 12/11/17 07:53 142/79 H 95 Weight 225 lb 11.2 oz 12/10/17 12/11/17 12/12/17 06:59 06:59 06:59 Intake Total 480 324 720 Output Total 2675 1200 1825 Balance -2195 -876 -1105 - Labs Result Diagrams: 12/10/17 05:16 12/11/17 05:41 Troponin/CKMB CK-MB (CK-2) 3.8 ng/mL (0-6.6) 12/09/17 09:04 Troponin I Less than 0.010 ng/mL (< 0.028) 12/09/17 09:04 - Assessment/Plan Pt. seen and eval. by me. I agree with the A/P by the [employer]. He is feeling better and denies SOB. The echo indicates an EF 25-30%. He will either need an upgrade to a Bi-V pacer or Bi-V AICD. Chest clear. Irreg/irreg.
--- NOTE | 2017-12-11 11:31 | PDOC.PN ---
- Subjective Encounter Start Date: 12/11/17 Encounter Start Time: 09:00 -: old records requested/rev Patient seen and examined. No new complaints. No overnight events - Objective Resuscitation Status: Resuscitation Status FULL:Full Resuscitation MAR Reviewed: Yes Vital Signs & Weight: Vital Signs (12 hours) Temp Pulse Pulse Pulse Resp BP BP 12/11/17 10:13 88 71 122/71 135/69 12/11/17 07:55 98.8 F 72 18 12/11/17 07:53 98.8 F 72 18 12/11/17 04:00 98.6 F 78 20 12/10/17 23:43 98.4 F 65 15 BP BP BP Pulse Ox Pulse Ox Pulse Ox 12/11/17 10:13 99 91 L 12/11/17 07:55 95 12/11/17 07:53 142/79 H 95 12/11/17 04:00 138/69 93 L 12/10/17 23:43 113/65 96 Weight Weight 225 lb 11.2 oz I&O: 12/10/17 12/11/17 12/12/17 06:59 06:59 06:59 Intake Total 480 324 Output Total 2675 1200 Balance -2195 -876 Result Diagrams: 12/10/17 05:16 12/11/17 05:41 Radiology Reviewed by me: Yes (echo report noted) EKG Reviewed by me: Yes Phys Exam - Physical Examination Constitutional: NAD HEENT: PERRLA, moist MMs, sclera anicteric Neck: no JVD, supple Respiratory: no wheezing, no rales, no rhonchi Cardiovascular: no significant murmur, irregular Gastrointestinal: soft, non-tender, no distention, positive bowel sounds Musculoskeletal: no edema, pulses present Neurological: non-focal, normal sensation, moves all 4 limbs Lymphatic: no nodes Psychiatric: normal affect, A&O x 3 Skin: no rash, normal turgor Dx/Plan (1) Acute on chronic combined systolic and diastolic ACC/AHA stage C congestive heart failure Code(s): I50.43 - ACUTE ON CHRONIC COMBINED SYSTOLIC AND DIASTOLIC HRT FAIL Status: Acute (2) Atrial fibrillation Code(s): I48.91 - UNSPECIFIED ATRIAL FIBRILLATION Status: Chronic Qualifiers: Atrial fibrillation type: chronic Qualified Code(s): I48.2 - Chronic atrial fibrillation Comment: (3) CKD (chronic kidney disease), stage III Code(s): N18.3 - CHRONIC KIDNEY DISEASE, STAGE 3 (MODERATE) Status: Chronic Comment: Avoid nephrotoxic meds and limit contrast exposure (4) Chronic anticoagulation Code(s): Z79.01 - CORRECTION (CURRENT) USE OF ANTICOAGULANTS Status: Chronic (5) H/O cardiac pacemaker Code(s): Z95.0 - PRESENCE OF CARDIAC PACEMAKER Status: Chronic (6) Hyperlipidemia Code(s): E78.5 - HYPERLIPIDEMIA, UNSPECIFIED Status: Chronic (7) Hypertension Code(s): I10 - ESSENTIAL (PRIMARY) HYPERTENSION Status: Chronic Qualifiers: Hypertension type: essential hypertension Qualified Code(s): I10 - Essential (primary) hypertension Comment: Continue Coreg and Lisinopril, serial monitoring (8) Macrocytic anemia Code(s): D53.9 - NUTRITIONAL ANEMIA, UNSPECIFIED Status: Chronic (9) Obesity (BMI 30-39.9) Code(s): E66.9 - OBESITY, UNSPECIFIED Status: Chronic (10) Sick sinus syndrome Code(s): I49.5 - SICK SINUS SYNDROME Status: Chronic Comment: has pacemaker for that - Plan cont current plan of care * as per EP, pt will need upgradation to biventricular pacemaker * currently on optimum medical therapy for CHF and now euvolemic * continue following medication * symptomatic treatment as below. * continue iv lasix for now Review of Systems - Review of Systems Eyes: negative: Pain, Vision Change, Conjunctivae Inflammation, Eyelid Inflammation, Redness, Other ENT: negative: Ear Pain, Ear Discharge, Nose Pain, Nose Discharge, Nose Congestion, Mouth Pain, Mouth Swelling, Throat Pain, Throat Swelling, Other Respiratory: negative: Cough, Dry, Shortness of Breath, Hemoptysis, SOB with Excertion, Pleuritic Pain, Sputum, Wheezing Cardiovascular: negative: chest pain, palpitations, orthopnea, paroxysmal nocturnal dyspnea, edema, light headedness, other Gastrointestinal: negative: Nausea, Vomiting, Abdominal Pain, Diarrhea, Constipation, Melena, Hematochezia, Other Genitourinary: negative: Dysuria, Frequency, Incontinence, Hematuria, Retention , Other Musculoskeletal: negative: Neck Pain, Shoulder Pain, Arm Pain, Back Pain, Hand Pain, Leg Pain, Foot Pain, Other Skin: negative: Rash, Lesions, Maged, Bruising, Other - Medications/Allergies Allergies/Adverse Reactions: Allergies Allergy/AdvReac Type Severity Reaction Status Date / Time No Known Allergies Allergy Verified 09/03/14 10:09 Medications: Current Medications Acetaminophen (Tylenol) 1,000 mg PO Q6H PRN PRN Reason: Headache/Fever or Mild Pain Al Hydroxide/Mg Hydroxide (Maalox) 15 ml PO Q4H PRN PRN Reason: Heartburn or Indigestion Artificial Tears (Tears Naturale) 0 drop EA EYE PRN PRN PRN Reason: Dry Eyes Aspirin (Aspirin Chewable) 81 mg PO [facility] Last Admin: 12/10/17 20:12 Dose: 81 mg Atorvastatin Calcium (Lipitor) 20 mg PO [facility] Last Admin: 12/10/17 20:12 Dose: 20 mg Carvedilol (Coreg) 25 mg PO BID [facility] Last Admin: 12/11/17 09:26 Dose: 25 mg Clonidine (Catapres) 0.1 mg PO Q4H PRN PRN Reason: Systolic BP > 180 Flecainide Acetate (Tambocor) 100 mg PO BID [facility] Last Admin: 12/11/17 09:26 Dose: 100 mg Furosemide (Lasix) 40 mg SLOW IVP 0600,1400 [facility] Last Admin: 12/11/17 06:07 Dose: 40 mg Guaifenesin (Robitussin Sf) 200 mg PO Q4H PRN PRN Reason: Cough Hydralazine HCl (Apresoline) 10 mg SLOW IVP Q4H PRN PRN Reason: Systolic BP > 180 Lisinopril (Zestril) 20 mg PO BID [facility] Last Admin: 12/11/17 09:26 Dose: 20 mg Loperamide HCl (Imodium) 2 mg PO PRN PRN PRN Reason: Diarrhea/Loose Stools Loratadine (Claritin) 10 mg PO DAILYPRN PRN PRN Reason: Sinus Symptoms Magnesium Hydroxide (Milk Of Magnesium) 30 ml PO DAILYPRN PRN PRN Reason: Constipation Mineral Oil/White Petrolatum (Eucerin Cream) 0 gm TOP BIDPRN PRN PRN Reason: Dry Skin Ondansetron HCl (Zofran Odt) 4 mg PO Q6H PRN PRN Reason: Nausea/Vomiting Ondansetron HCl (Zofran) 4 mg IVP Q6H PRN PRN Reason: Nausea/Vomiting Pantoprazole Sodium (Protonix) 40 mg PO DAILY [facility] Last Admin: 12/11/17 09:26 Dose: 40 mg Phenol (Chloraseptic [place] 180 Ml Bot) 0 ml PO PRN PRN PRN Reason: Sore Throat Potassium Chloride (Klor-Con 10) 10 meq PO DAILY [facility] Last Admin: 12/11/17 09:26 Dose: 10 meq Senna (Senokot) 2 tab PO HSPRN PRN PRN Reason: Constipation Sodium Chloride ([place] Nasal [place] 0.65%) 0 ml EA NARE QIDPRN PRN PRN Reason: Nasal Congestion Temazepam (Restoril) 15 mg PO HSPRN PRN PRN Reason: Insomnia
[2017-12-11] MEDS ORDERED: Phytonadione 10 MG/ML AMP PO SCH (14:45)
--- NOTE | 2017-12-11 14:53 | EKG ---
Test Reason : SOB Blood Pressure : / mmHG Vent. Rate : 091 BPM Atrial Rate : 091 BPM P-R Int : 000 ms QRS Dur : 196 ms QT Int : 442 ms P-R-T Axes : 000 -13 202 degrees QTc Int : 543 ms AIVR Left bundle branch block Abnormal ECG Confirmed by RADHA STRINGER ([id number]), editorial project manager MANJULA ALCAZAR ([id number]) on 12/11/2017 2:52:38 PM Referred By: [facility] Confirmed By:RADHA STRINGER
[2017-12-11] MEDS ORDERED: Warfarin Sodium 5 MG TAB PO SCH ×2 (17:00)
[2017-12-11] MEDS: Atorvastatin Calcium 20 MG TAB PO SCH (20:30)
[2017-12-11 21:07] LABS: Hemoglobin 14.4 g/dL (14.0-18.0); Platelet Count 130 thou/uL (130-400)
[2017-12-12] MEDS: Furosemide 40 MG/4 ML VIAL SLOW IVP SCH ×2 (06:02→14:32)
[2017-12-12] MEDS: Carvedilol 25 MG TAB PO SCH ×2 (06:02→21:53)
[2017-12-12 06:55] LABS: INR-International Normal Ratio 1.8; Prothrombin Time 21.1 SEC (12.0-14.7)
[2017-12-12] MEDS: Flecainide 50 MG TAB PO SCH (08:46)
[2017-12-12] MEDS: Potassium Chloride 10 MEQ TAB PO SCH (08:51)
[2017-12-12] MEDS: Lisinopril 20 MG TAB PO SCH ×2 (08:51→21:44)
[2017-12-12] MEDS ORDERED: Iopamidol 370 76% 50 ML VIAL FS ONE (09:04)
--- NOTE | 2017-12-12 09:41 | PDOC.CTH ---
Cardiology Progress Note - Subjective The pt seen and examined. No overnight events. No cardiac complaints. Plan for BiV PM/AICD placement today by Dr Davis. - Objective Vital Signs Temp Pulse Resp BP BP Pulse Ox 12/12/17 04:00 98.4 F 74 14 134/64 92 L 12/11/17 23:54 98.6 F 80 16 135/79 92 L Weight 159 lb 4.8 oz 12/11/17 12/12/17 12/13/17 06:59 06:59 06:59 Intake Total 324 3510 Output Total 1200 2600 Balance -876 910 - Physical Examination General/Neuro: alert & oriented x3 Neck: no JVD present Lungs: CTA Heart: other: (irregular) Abdomen: soft Extremities: other: (1+ pitting BLE edema) - Telemetry Telemetry Rhythm: Afib with V paced - Labs Result Diagrams: 12/11/17 20:46 12/11/17 05:41 Troponin/CKMB CK-MB (CK-2) 3.8 ng/mL (0-6.6) 12/09/17 09:04 Troponin I Less than 0.010 ng/mL (< 0.028) 12/09/17 09:04 - Assessment/Plan 1. 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 Echo on 12/10/17 showed EF 25-30% due to chronic afib. Possible BiV PM/AICD today at [address] Davis. Cont. to monitor. 2. Chronic Afib - well controlled HR with Flecainide 100mg BID. Coumadin is on hold for high INR and possible PM/AICD placement. 3. HTN - stable with current med. 4. PM placement 05/17 SSS - recent interrogation showed normal. 5. Hyperlipidemia - on Lipitor MAR reviewed * Echo in 03/2017 showed EF 55%, mild LAE, mild AI, mild-mod TR, mild PI, and trace MR. * Stress test in 2016 showed normal. Review of Systems - Review of Systems Constitutional: reports: no symptoms reported EENTM: reports: no symptoms reported Respiratory: reports: no symptoms reported Cardiac (ROS): reports: no symptoms reported ABD/GI: reports: no symptoms reported : reports: no symptoms reported Musculoskeletal: reports: no symptoms reported
--- NOTE | 2017-12-12 12:45 | PDOC.PN ---
- Subjective Encounter Start Date: 12/12/17 Encounter Start Time: 09:00 Patient seen and examined. No new complaints. No overnight events - Objective Resuscitation Status: Resuscitation Status FULL:Full Resuscitation MAR Reviewed: Yes Vital Signs & Weight: Vital Signs (12 hours) Temp Pulse Resp BP BP Pulse Ox 12/12/17 12:00 97.7 F 74 16 127/72 95 12/12/17 07:45 98.4 F 74 14 96 12/12/17 04:00 98.4 F 74 14 134/64 92 L Weight Weight 159 lb 4.8 oz I&O: 12/11/17 12/12/17 12/13/17 06:59 06:59 06:59 Intake Total 324 3510 Output Total 1200 2600 Balance -876 910 Result Diagrams: 12/11/17 20:46 12/11/17 05:41 EKG Reviewed by me: Yes (pacing) Phys Exam - Physical Examination Constitutional: NAD HEENT: PERRLA, moist MMs, sclera anicteric Neck: no JVD, supple Respiratory: no wheezing, no rales, no rhonchi Cardiovascular: RRR, no significant murmur, no rub Gastrointestinal: soft, non-tender, no distention, positive bowel sounds Musculoskeletal: no edema, pulses present Neurological: non-focal, normal sensation Psychiatric: normal affect, A&O x 3 Skin: no rash, normal turgor Dx/Plan (1) Acute on chronic combined systolic and diastolic ACC/AHA stage C congestive heart failure Code(s): I50.43 - ACUTE ON CHRONIC COMBINED SYSTOLIC AND DIASTOLIC HRT FAIL Status: Acute (2) Atrial fibrillation Code(s): I48.91 - UNSPECIFIED ATRIAL FIBRILLATION Status: Chronic Qualifiers: Atrial fibrillation type: chronic Qualified Code(s): I48.2 - Chronic atrial fibrillation Comment: (3) CKD (chronic kidney disease), stage III Code(s): N18.3 - CHRONIC KIDNEY DISEASE, STAGE 3 (MODERATE) Status: Chronic Comment: Avoid nephrotoxic meds and limit contrast exposure (4) Chronic anticoagulation Code(s): Z79.01 - CUSTODIAL (CURRENT) USE OF ANTICOAGULANTS Status: Chronic (5) H/O cardiac pacemaker Code(s): Z95.0 - PRESENCE OF CARDIAC PACEMAKER Status: Chronic (6) Hyperlipidemia Code(s): E78.5 - HYPERLIPIDEMIA, UNSPECIFIED Status: Chronic (7) Hypertension Code(s): I10 - ESSENTIAL (PRIMARY) HYPERTENSION Status: Chronic Qualifiers: Hypertension type: essential hypertension Qualified Code(s): I10 - Essential (primary) hypertension Comment: Continue Coreg and Lisinopril, serial monitoring (8) Macrocytic anemia Code(s): D53.9 - NUTRITIONAL ANEMIA, UNSPECIFIED Status: Chronic (9) Obesity (BMI 30-39.9) Code(s): E66.9 - OBESITY, UNSPECIFIED Status: Chronic (10) Sick sinus syndrome Code(s): I49.5 - SICK SINUS SYNDROME Status: Chronic Comment: has pacemaker for that - Plan cont current plan of care, plan discussed w/ family * today plan for upgradation of pacemaker to biventricular pacemaker. * medication reviewed as below * symptomatic treatment * discussed with son * expecting discharge tomorrow if stable Review of Systems - Review of Systems Eyes: negative: Pain, Vision Change, Conjunctivae Inflammation, Eyelid Inflammation, Redness, Other ENT: negative: Ear Pain, Ear Discharge, Nose Pain, Nose Discharge, Nose Congestion, Mouth Pain, Mouth Swelling, Throat Pain, Throat Swelling, Other Respiratory: negative: Cough, Dry, Shortness of Breath, Hemoptysis, SOB with Excertion, Pleuritic Pain, Sputum, Wheezing Cardiovascular: negative: chest pain, palpitations, orthopnea, paroxysmal nocturnal dyspnea, edema, light headedness, other Gastrointestinal: negative: Nausea, Vomiting, Abdominal Pain, Diarrhea, Constipation, Melena, Hematochezia, Other Genitourinary: negative: Dysuria, Frequency, Incontinence, Hematuria, Retention , Other Musculoskeletal: negative: Neck Pain, Shoulder Pain, Arm Pain, Back Pain, Hand Pain, Leg Pain, Foot Pain, Other Skin: negative: Rash, Lesions, Maged, Bruising, Other - Medications/Allergies Allergies/Adverse Reactions: Allergies Allergy/AdvReac Type Severity Reaction Status Date / Time No Known Allergies Allergy Verified 09/03/14 10:09 Medications: Current Medications Acetaminophen (Tylenol) 1,000 mg PO Q6H PRN PRN Reason: Headache/Fever or Mild Pain Al Hydroxide/Mg Hydroxide (Maalox) 15 ml PO Q4H PRN PRN Reason: Heartburn or Indigestion Artificial Tears (Tears Naturale) 0 drop EA EYE PRN PRN PRN Reason: Dry Eyes Aspirin (Aspirin Chewable) 81 mg PO [facility] Last Admin: 12/11/17 20:30 Dose: 81 mg Atorvastatin Calcium (Lipitor) 20 mg PO HS [facility] Last Admin: 12/11/17 20:30 Dose: 20 mg Carvedilol (Coreg) 25 mg PO BID [facility] Last Admin: 12/12/17 06:02 Dose: 25 mg Clonidine (Catapres) 0.1 mg PO Q4H PRN PRN Reason: Systolic BP > 180 Flecainide Acetate (Tambocor) 100 mg PO BID [facility] Last Admin: 12/12/17 08:46 Dose: Not Given Furosemide (Lasix) 40 mg SLOW IVP 0600,1400 [facility] Last Admin: 12/12/17 06:02 Dose: 40 mg Guaifenesin (Robitussin Sf) 200 mg PO Q4H PRN PRN Reason: Cough Hydralazine HCl (Apresoline) 10 mg SLOW IVP Q4H PRN PRN Reason: Systolic BP > 180 Lisinopril (Zestril) 20 mg PO BID [facility] Last Admin: 12/12/17 08:51 Dose: 20 mg Loperamide HCl (Imodium) 2 mg PO PRN PRN PRN Reason: Diarrhea/Loose Stools Loratadine (Claritin) 10 mg PO DAILYPRN PRN PRN Reason: Sinus Symptoms Magnesium Hydroxide (Milk Of Magnesium) 30 ml PO DAILYPRN PRN PRN Reason: Constipation Mineral Oil/White Petrolatum (Eucerin Cream) 0 gm TOP BIDPRN PRN PRN Reason: Dry Skin Ondansetron HCl (Zofran Odt) 4 mg PO Q6H PRN PRN Reason: Nausea/Vomiting Ondansetron HCl (Zofran) 4 mg IVP Q6H PRN PRN Reason: Nausea/Vomiting Pantoprazole Sodium (Protonix) 40 mg PO DAILY [facility] Last Admin: 12/12/17 08:51 Dose: 40 mg Phenol (Chloraseptic [place] 180 Ml Bot) 0 ml PO PRN PRN PRN Reason: Sore Throat Potassium Chloride (Klor-Con 10) 10 meq PO DAILY [facility] Last Admin: 12/12/17 08:51 Dose: 10 meq Senna (Senokot) 2 tab PO HSPRN PRN PRN Reason: Constipation Sodium Chloride ([place] Nasal [place] 0.65%) 0 ml EA NARE QIDPRN PRN PRN Reason: Nasal Congestion Temazepam (Restoril) 15 mg PO HSPRN PRN PRN Reason: Insomnia
[2017-12-12] MEDS ORDERED: PHENYLEPHRINE-NS 100 MCG/ML 10 ML SYRINGE ONE (13:46)
[2017-12-12] MEDS ORDERED: PROPOFOL 200 MG/20 ML VIAL ONE (13:46)
[2017-12-12] MEDS ORDERED: CEFAZOLIN/Water 2 GM/20 ML SYRINGE ONE (14:20)
[2017-12-12] MEDS ORDERED: Lidocaine 1% (PF) 30 ML VIAL ONE (14:34)
[2017-12-12] MEDS ORDERED: Propofol 1,000 MG/100 ML VIAL IV ONE (14:44)
[2017-12-12] MEDS ORDERED: Promethazine HCl 25 MG/ML VIAL SLOW IVP PRN (16:16)
[2017-12-12] MEDS ORDERED: Ondansetron HCl/PF 4 MG/2 ML Vial IVP PRN (16:16)
[2017-12-12] MEDS ORDERED: Promethazine HCl 25 MG/ML VIAL IM PRN (16:16)
[2017-12-12] MEDS ORDERED: Warfarin Sodium 2.5 MG TAB PO SCH (18:00)
[2017-12-12] MEDS ORDERED: Acetaminophen/Codeine 30-300mg Tablet PO PRN ×2 (18:00)
[2017-12-12] MEDS: Atorvastatin Calcium 20 MG TAB PO SCH (21:49)
[2017-12-13 06:06] LABS: INR-International Normal Ratio 1.3; Prothrombin Time 16.3 SEC (12.0-14.7)
[2017-12-13] MEDS ORDERED: PHENYLEPHRINE-NS 100 MCG/ML 10 ML SYRINGE ONE (06:34)
[2017-12-13 06:41] VITALS: TEMP 97.7
[2017-12-13] MEDS: Furosemide 40 MG/4 ML VIAL SLOW IVP SCH (06:42)
--- NOTE | 2017-12-13 08:09 | RAD ---
SINGLE VIEW CHEST: Date: 12/13/17 COMPARISON: 11/27/15. HISTORY: Pacemaker placement. FINDINGS: Single view of chest shows an enlarged cardiomediastinal silhouette. The pacemaker has been exchanged . There are still leads in the right atrium and ventricle. There is also a new lead in coronary sinus . No pneumothorax is seen. IMPRESSION: Status post pacemaker exchange without evidence of complication. POS: CET
--- NOTE | 2017-12-13 09:10 | PDOC.CTH ---
Cardiology Progress Note - Subjective The pt seen and examined. No overnight events. No cardiac complaints. Hematoma to PM site with compression dressing. Soreness to the site. - Objective Vital Signs Temp Pulse Resp BP BP Pulse Ox 12/13/17 07:50 97.7 F 87 16 127/72 98 12/13/17 06:40 97.7 F 70 16 118/65 98 12/13/17 00:00 98.7 F 64 16 123/58 L 96 12/12/17 21:44 143/81 H Weight 159 lb 4.8 oz 12/12/17 12/13/17 12/14/17 06:59 06:59 06:59 Intake Total 3510 1080 Output Total 2600 450 Balance 910 630 - Physical Examination General/Neuro: alert & oriented x3 Neck: no JVD present Lungs: CTA Heart: other: (irregular) Abdomen: soft Extremities: other: (No BLE edema) - Telemetry Telemetry Rhythm: Afib with BiV paced - Labs Result Diagrams: 12/11/17 20:46 12/11/17 05:41 Troponin/CKMB CK-MB (CK-2) 3.8 ng/mL (0-6.6) 12/09/17 09:04 Troponin I Less than 0.010 ng/mL (< 0.028) 12/09/17 09:04 - Assessment/Plan 1. 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 Hematoma to the site with compression dressing. Stable with Lasix 40mg IV BID, Coreg 25mg BId, and Lisinopril 20mg BID. Lasix IV was changed to PO form from this AM. 2. Chronic Afib - well controlled HR with Flecainide 100mg BID. Coumadin is on hold for high INR and possible BiV PM upgrade and post op hematoma. 3. HTN - stable with current med. 4. PM placement / SSS - recent interrogation showed normal. 5. Hyperlipidemia - on Lipitor MAR reviewed * Echo in 03/2017 showed EF 55%, mild LAE, mild AI, mild-mod TR, mild PI, and trace MR. * Stress test in 2016 showed normal. * From Cardiac standpoint, the pt is stable to d/c home once Dr Davis clears for the pt. The pt will f/u with Dr Duenas' office within 2-4 wks. Review of Systems - Review of Systems Constitutional: reports: no symptoms reported EENTM: reports: no symptoms reported Respiratory: reports: no symptoms reported Cardiac (ROS): reports: no symptoms reported ABD/GI: reports: no symptoms reported : reports: no symptoms reported Musculoskeletal: reports: see HPI Skin: reports: no symptoms reported Neurological: reports: no symptoms reported
[2017-12-13] MEDS: Lisinopril 20 MG TAB PO SCH (10:00)
[2017-12-13] MEDS: Potassium Chloride 10 MEQ TAB PO SCH (10:01)
[2017-12-13] MEDS: Carvedilol 25 MG TAB PO SCH (10:01)
--- NOTE | 2017-12-13 10:27 | DIS ---
DATE OF ADMISSION: 12/09/2017 DATE OF DISCHARGE: 12/13/2017 PRIMARY CARE PHYSICIAN: Trice Elkins DISCHARGE DISPOSITION: Home. PRIMARY DISCHARGE DIAGNOSES: 1. Acute on chronic combined systolic and diastolic heart failure. 2. Status post upgradation of pacemaker to biventricular pacemaker. SECONDARY DISCHARGE DIAGNOSES: Chronic atrial fibrillation, sick sinus syndrome with pacemaker, chronic anticoagulation, chronic kidney disease stage 3 , hypertension, dyslipidemia, obesity with body mass index 24, macrocytic anemia. PRIMARY PROCEDURES/OPERATIONS: Upgradation of pacemaker procedure to biventricular pacemaker. RADIOLOGICAL INVESTIGATION: Chest x-ray on admission showed findings suggestive of congestive heart failure. Echocardiography showed EF 25%-30%. Repeat chest x-ray after the procedure did not show any complication. SIGNIFICANT LABORATORY DATA: WBC 7.9, hemoglobin 14.4, platelet 130. INR 1.3. Sodium 142, potassium 3.8, BUN 19, creatinine 1.26, calcium 8.7. Cardiac enzymes negative. LFT normal. Magnesium 1.6. BNP 1111. TSH 1.17. DISCHARGE MEDICATIONS: Aspirin 81 mg p.o. at bedtime, Lipitor 20 mg p.o. at bedtime, Coreg 25 mg p.o. b.i.d., Lasix 40 mg p.o. b.i.d., lisinopril 20 mg p.o. b.i.d., Protonix 40 mg p.o. daily, potassium chloride 10 mEq p.o. daily, warfarin 5 mg on Saturday, Saturday and the rest of day 2.5 mg, Aldactone 12.5 mg p.o. daily. CONTRAINDICATIONS: None. CODE STATUS: FULL CODE. INPATIENT CONSULTANTS: Dr. Duenas was following while in hospital. Dr. Davis was consulted for upgradation of pacemaker. TEST RESULTS PENDING ON DISCHARGE: None. ALLERGIES: No known drug allergy. DISCHARGE PLAN: Post hospital, patient is instructed to follow up with Dr. Duenas , primary care physician and Dr. Davis as instructed. The patient will follow up with the Coumadin clinic. HOSPITAL COURSE: An 87-year-old male who was admitted by Dr. Street. Please see his H&P for further details. He was admitted on 12/09/2017 with increasing shortness of breath. His chest x-ray was consistent with CHF exacerbation. His previous echocardiography showed normal EF. During this admission, we did repeat echocardiography which showed systolic dysfunction with EF 25%. Dr. Duenas recommended to do biventricular pacemaker because of low EF and that is why Dr. Davis was consulted and procedure was done without any complication. Now, patient is completely euvolemic. His CHF is completely resolved. He will resume his warfarin and he will have INR therapeutic between 2 and 3. He will follow up with the Coumadin Clinic. This patient does not want to go any kind of facility he rather wanted to go home. He is doing very well. He is on room air. He is ambulatory, tolerating p.o. well. The patient is seen and examined at bedside today. PHYSICAL EXAMINATION: VITAL SIGNS: Currently, temperature 97.7, pulse 87, respiratory rate 16, blood pressure 127/72, weight 159 pounds. GENERAL: The patient is currently alert, awake, in no obvious acute distress. HEAD: Normocephalic, atraumatic. EYES: Pupils round, reactive to light. Extraocular muscle intact. ENT: Oropharynx within normal limit. LUNGS: Clear without any rhonchi or rales. CARDIAC: S1, S2 appears regular. No murmur, no gallop, no rub. ABDOMEN: Soft and benign without any tenderness. EXTREMITIES: No edema. NEUROLOGIC: Nonfocal examination. Overall, the patient is doing very well and patient is stable for discharge today if Cardiology and Electrophysiology okay. Total time spent on discharge day to arrange this discharge is 32 minutes MTDD
--- NOTE | 2017-12-13 11:08 | PDOC.PN ---
- Subjective Encounter Start Date: 12/13/17 Encounter Start Time: 08:50 Patient seen and examined. No new complaints. No overnight events - Objective Resuscitation Status: Resuscitation Status FULL:Full Resuscitation MAR Reviewed: Yes Vital Signs & Weight: Vital Signs (12 hours) Temp Pulse Resp BP BP Pulse Ox 12/13/17 10:00 127/72 12/13/17 07:50 97.7 F 87 16 127/72 98 12/13/17 06:40 97.7 F 70 16 118/65 98 12/13/17 00:00 98.7 F 64 16 123/58 L 96 Weight Weight 159 lb 4.8 oz I&O: 12/12/17 12/13/17 12/14/17 06:59 06:59 06:59 Intake Total 3510 1080 Output Total 2600 450 Balance 910 630 Result Diagrams: 12/11/17 20:46 12/11/17 05:41 Radiology Reviewed by me: Yes (chest xray) EKG Reviewed by me: Yes (pacing) Phys Exam - Physical Examination Constitutional: NAD HEENT: PERRLA, moist MMs, sclera anicteric Neck: no JVD, supple Respiratory: no wheezing, no rales, no rhonchi Cardiovascular: RRR, no significant murmur, no rub Gastrointestinal: soft, non-tender, no distention, positive bowel sounds Musculoskeletal: no edema, pulses present Neurological: non-focal, normal sensation, moves all 4 limbs Psychiatric: normal affect, A&O x 3 Skin: no rash, normal turgor Dx/Plan (1) Acute on chronic combined systolic and diastolic ACC/AHA stage C congestive heart failure Code(s): I50.43 - ACUTE ON CHRONIC COMBINED SYSTOLIC AND DIASTOLIC HRT FAIL Status: Acute (2) Atrial fibrillation Code(s): I48.91 - UNSPECIFIED ATRIAL FIBRILLATION Status: Chronic Qualifiers: Atrial fibrillation type: chronic Qualified Code(s): I48.2 - Chronic atrial fibrillation Comment: (3) CKD (chronic kidney disease), stage III Code(s): N18.3 - CHRONIC KIDNEY DISEASE, STAGE 3 (MODERATE) Status: Chronic Comment: Avoid nephrotoxic meds and limit contrast exposure (4) Chronic anticoagulation Code(s): Z79.01 - ELECTRONIC CONSOLE DISPLAY OPERATOR (CURRENT) USE OF ANTICOAGULANTS Status: Chronic (5) H/O cardiac pacemaker Code(s): Z95.0 - PRESENCE OF CARDIAC PACEMAKER Status: Chronic (6) Hyperlipidemia Code(s): E78.5 - HYPERLIPIDEMIA, UNSPECIFIED Status: Chronic (7) Hypertension Code(s): I10 - ESSENTIAL (PRIMARY) HYPERTENSION Status: Chronic Qualifiers: Hypertension type: essential hypertension Qualified Code(s): I10 - Essential (primary) hypertension Comment: Continue Coreg and Lisinopril, serial monitoring (8) Macrocytic anemia Code(s): D53.9 - NUTRITIONAL ANEMIA, UNSPECIFIED Status: Chronic (9) Obesity (BMI 30-39.9) Code(s): E66.9 - OBESITY, UNSPECIFIED Status: Chronic (10) Sick sinus syndrome Code(s): I49.5 - SICK SINUS SYNDROME Status: Chronic Comment: has pacemaker for that - Plan cont current plan of care * medication reviewed as below * symptomatic treatment * post procedure doing well * will dc if cardiology ok * see discharge mikaela. Review of Systems - Review of Systems Eyes: negative: Pain, Vision Change, Conjunctivae Inflammation, Eyelid Inflammation, Redness, Other ENT: negative: Ear Pain, Ear Discharge, Nose Pain, Nose Discharge, Nose Congestion, Mouth Pain, Mouth Swelling, Throat Pain, Throat Swelling, Other Respiratory: negative: Cough, Dry, Shortness of Breath, Hemoptysis, SOB with Excertion, Pleuritic Pain, Sputum, Wheezing Cardiovascular: negative: chest pain, palpitations, orthopnea, paroxysmal nocturnal dyspnea, edema, light headedness, other Gastrointestinal: negative: Nausea, Vomiting, Abdominal Pain, Diarrhea, Constipation, Melena, Hematochezia, Other Genitourinary: negative: Dysuria, Frequency, Incontinence, Hematuria, Retention , Other Musculoskeletal: negative: Neck Pain, Shoulder Pain, Arm Pain, Back Pain, Hand Pain, Leg Pain, Foot Pain, Other Skin: negative: Rash, Lesions, Maged, Bruising, Other - Medications/Allergies Allergies/Adverse Reactions: Allergies Allergy/AdvReac Type Severity Reaction Status Date / Time No Known Allergies Allergy Verified 09/03/14 10:09 Medications: Current Medications Acetaminophen (Tylenol) 1,000 mg PO Q6H PRN PRN Reason: Headache/Fever or Mild Pain Last Admin: 12/13/17 01:49 Dose: 1,000 mg Acetaminophen/Codeine Phosphate (Tylenol #3) 1 tab PO Q4H PRN PRN Reason: Mild Pain (1-3) Acetaminophen/Codeine Phosphate (Tylenol #3) 2 tab PO Q4H PRN PRN Reason: Moderate Pain (4-6) Al Hydroxide/Mg Hydroxide (Maalox) 15 ml PO Q4H PRN PRN Reason: Heartburn or Indigestion Artificial Tears (Tears Naturale) 0 drop EA EYE PRN PRN PRN Reason: Dry Eyes Aspirin (Aspirin Chewable) 81 mg PO HS [facility] Last Admin: 12/12/17 21:53 Dose: 81 mg Atorvastatin Calcium (Lipitor) 20 mg PO HS [facility] Last Admin: 12/12/17 21:49 Dose: 20 mg Carvedilol (Coreg) 25 mg PO BID [facility] Last Admin: 12/13/17 10:01 Dose: 25 mg Clonidine (Catapres) 0.1 mg PO Q4H PRN PRN Reason: Systolic BP > 180 Furosemide (Lasix) 40 mg PO 0900,1400 [facility] Guaifenesin (Robitussin Sf) 200 mg PO Q4H PRN PRN Reason: Cough Hydralazine HCl (Apresoline) 10 mg SLOW IVP Q4H PRN PRN Reason: Systolic BP > 180 Lisinopril (Zestril) 20 mg PO BID [facility] Last Admin: 12/13/17 10:00 Dose: 20 mg Loperamide HCl (Imodium) 2 mg PO PRN PRN PRN Reason: Diarrhea/Loose Stools Loratadine (Claritin) 10 mg PO DAILYPRN PRN PRN Reason: Sinus Symptoms Magnesium Hydroxide (Milk Of Magnesium) 30 ml PO DAILYPRN PRN PRN Reason: Constipation Mineral Oil/White Petrolatum (Eucerin Cream) 0 gm TOP BIDPRN PRN PRN Reason: Dry Skin Ondansetron HCl (Zofran Odt) 4 mg PO Q6H PRN PRN Reason: Nausea/Vomiting Ondansetron HCl (Zofran) 4 mg IVP Q6H PRN PRN Reason: Nausea/Vomiting Pantoprazole Sodium (Protonix) 40 mg PO DAILY [facility] Last Admin: 12/13/17 10:01 Dose: 40 mg Phenol (Chloraseptic [place] 180 Ml Bot) 0 ml PO PRN PRN PRN Reason: Sore Throat Potassium Chloride (Klor-Con 10) 10 meq PO DAILY [facility] Last Admin: 12/13/17 10:01 Dose: 10 meq Senna (Senokot) 2 tab PO HSPRN PRN PRN Reason: Constipation Sodium Chloride ([place] Nasal [place] 0.65%) 0 ml EA NARE QIDPRN PRN PRN Reason: Nasal Congestion Sodium Chloride (Flush - Normal Saline) 10 ml IVF PRN PRN PRN Reason: Saline Flush Last Admin: 12/13/17 10:00 Dose: 10 ml Temazepam (Restoril) 15 mg PO HSPRN PRN PRN Reason: Insomnia Warfarin Sodium (Coumadin) 5 mg PO WeSa@1700 [facility] Warfarin Sodium (Coumadin) 2.5 mg PO SuMoTuThFr@1700 [facility]
[2017-12-13 11:59] VITALS: BP 111/82
[2017-12-13] MEDS ORDERED: Furosemide 40 MG TAB PO SCH (14:00)
[2017-12-13] MEDS ORDERED: Warfarin Sodium 2.5 MG TAB PO SCH (17:00)
--- NOTE | 2017-12-14 14:41 | PRG ---
DATE OF SERVICE: 12/13/2017 ELECTROPHYSIOLOGY FOLLOWUP NOTE SUBJECTIVE: Mr. Saavedra is doing well one day after his biventricular ICD upgrade. He has no dizziness, loss of consciousness. Device site is in a pressure bandage, but does not appear to have significant5 hematoma. Also ther is no fever, chills or cough. His PND and orthopnea resolved. Lower extremity edema also improved over the hospital stay. OBJECTIVE DATA: VITAL SIGNS: Blood pressure is 111/59, heart rate 84, respiration is 18, temperature 97.7 degrees Fahrenheit. GENERAL: Alert and oriented man, in no apparent distress. NECK: Supple. Jugular veins not distended. CHEST: Coarse crackles. CARDIOVASCULAR: Heart sounds are regular to rate and rhythm. DATABASE: INR today 1.3. EKG reveals atrial fibrillation and ventricular pacing. Interrogation of his device reveals a [employer]onic SELECTOR PACKER-D device with battery life. Lead parameters are adequate. RV 7.3 millivolts, LV threshold 1 volt at 1 millisecond. INR 1.3 today. ASSESSMENT AND PLAN: Mr. Saavedra is a pleasant 87-year-old man with history of newly found congestive heart failure and cardiomyopathy, chronic atrial fibrillation, heart failure exacerbation. He underwent a biventricular ICD upgrade yesterday and he tolerated the procedure well. ASSESSMENT: He is stable. His chest x-ray is negative for pneumothorax. Device/ICD check is revealing adequate function. PLAN: At this point, I find Mr. Saavedra stable for discharge. He has been encouraged to continue antibiotic for 1 week and report to our clinic in 10-14 days for wound check. The dressing can be left on until follows up in a day or two. He is encouraged to resume his anticoagulation with coumading with target INR of 2-3. MTDD
[2017-12-14] MEDS ORDERED: Warfarin Sodium 5 MG TAB PO SCH (17:00)
== END 2017-12-13 14:10 | disposition home or self-care (01) | DRG 226 ==
LOC: ERS 08:46 → 2NO 10:50 → ERS 11:11
PROVIDERS: ADMIT Family Medicine; ATTEND Family Medicine
PROC: 0JH609Z Insertion of Cardiac Resynchronization Defibrillator Pulse Generator into Chest Subcutaneous Tissue and Fascia, Open Approach (ICD-10-PCS; principal; 2017-12-12)
PROC: 02HL3KZ Insertion of Defibrillator Lead into Left Ventricle, Percutaneous Approach (ICD-10-PCS; 2017-12-12)
PROC: 02HK3KZ Insertion of Defibrillator Lead into Right Ventricle, Percutaneous Approach (ICD-10-PCS; 2017-12-12)
PROC: 0JPT0PZ Removal of Cardiac Rhythm Related Device from Trunk Subcutaneous Tissue and Fascia, Open Approach (ICD-10-PCS; 2017-12-12)
DX: I13.0 Hypertensive heart and chronic kidney disease with heart failure and stage 1 through stage 4 chronic kidney disease, or unspecified chronic kidney disease (principal); I50.43 Acute on chronic combined systolic (congestive) and diastolic (congestive) heart failure; E78.5 Hyperlipidemia, unspecified; I49.5 Sick sinus syndrome; N18.3 Chronic kidney disease, stage 3 (moderate); I48.2 Chronic atrial fibrillation; D53.9 Nutritional anemia, unspecified; E66.9 Obesity, unspecified; Z68.30 Body mass index [BMI] 30.0-30.9, adult; Z79.01 Long term (current) use of anticoagulants; Z96.642 Presence of left artificial hip joint
CPT/HCPCS: 33224; 33249; 36005; 36415; 71045; 75820; 80048; 80053; 82553; 83735; 83880; 84443; 84484; 85007; 85014; 85018; 85025; 85027; 85049; 85379; 85610; 93005; 93306; 93798; 96374; C1777; C1882; C1900; J1940; J2001; J2704; J3430; J3490

== ENCOUNTER 2017-12-23 01:22 | Observation (INO) | payer MEDICARE, OTHER ==
[2017-12-23 02:05] LABS: #Eosinphils 0.2 thou/uL (0.0-0.7); #Lymphocytes 2.2 thou/uL (1.20-3.40); #Monocytes 0.9 thou/uL (0.11-0.59); #Neutrophils 4.9 thou/uL (1.40-6.50); %Basophils 0.4 % (0.0-1.0); %Eosinophils 2.6 % (0.0-10.0); %Lymphocytes 26.5 % (21.0-51.0); %Monocytes 11.4 % (0.0-10.0); Hemoglobin 12.6 g/dL (14.0-18.0); Mean Corpuscular HGB CONC 33.7 g/dL (32.0-36.0); Mean Corpuscular Hemoglobin 34.6 pg (27.0-31.0); Mean Platelet Volume 8.2 fL (7.4-10.4); Platelet Count 138 thou/uL (130-400); Red Blood Cell (RBC) Count 3.65 mill/uL (4.70-6.10); White Blood Cell (WBC) Count 8.2 thou/uL (4.8-10.8)
[2017-12-23 02:27] LABS: ALT (SGPT) 21 U/L (8-55); AST (SGOT) 34 U/L (5-34); Albumin 3.1 g/dL (3.4-4.8); Alkaline Phosphatase 82 U/L (40-150); Anion Gap 12 mmol/L (10-20); BUN (Urea Nitrogen) 27 mg/dL (8.4-25.7); Bilirubin, Total 2.1 mg/dL (0.2-1.2); Calc. Creatinine Clearance 0 mL/min (70-130); Calcium 8.5 mg/dL (7.8-10.44); Carbon Dioxide 21 mmol/L (23-31); Chloride 110 mmol/L (98-107); Estimated GFR-MDRD 44; Globulin 3.1 g/dL (2.4-3.5); Glucose 96 mg/dL (83-110); Potassium 4.5 mmol/L (3.5-5.1); Protein, Total 6.2 g/dL (5.8-8.1); Sodium 138 mmol/L (136-145)
[2017-12-23 02:30] LABS: CKMB 1.2 ng/mL (0-6.6); Troponin I Less than 0.010 ng/mL (< 0.028)
[2017-12-23] MEDS ORDERED: Ondansetron ODT 4 MG TAB SL PRN (05:17)
[2017-12-23] MEDS ORDERED: Ondansetron HCl/PF 4 MG/2 ML Vial IVP PRN ×2 (05:17→10:02)
[2017-12-23] MEDS ORDERED: Acetaminophen 325 MG TAB PO PRN (05:17)
[2017-12-23 05:58] LABS: Troponin I 0.043 ng/mL (< 0.028)
[2017-12-23 07:35] VITALS: BMI 33.1
--- NOTE | 2017-12-23 07:40 | RAD ---
ONE VIEW CHEST: HISTORY: Difficulty breathing. COMPARISON: 12/09/17. FINDINGS: Portable upright chest demonstrates a left-sided defibrillator with lead position over the right atri um, right ventricle, and coronary sinus. There has been placement of new leads since the previous ex am. Heart is enlarged. There is atherosclerosis of the aorta. Pulmonary vessels are within normal limits. Minimal right-sided pleural effusion. Parenchymal change in the lung bases is suspected. N o pneumothorax or osseous abnormalities. Stable densities projecting over the right breast. IMPRESSION: 1. Left-sided transvenous defibrillator. NO pneumothorax. 2. When compared to the previous examination, improved aeration in the lung bases. Minimal parenchy mal changes in the lung bases do remain. POS: [facility]
[2017-12-23 08:57] LABS: Troponin I 0.073 ng/mL (< 0.028)
[2017-12-23] MEDS ORDERED: Furosemide 20 MG TAB PO PRN (10:02)
[2017-12-23] MEDS ORDERED: cloNIDine 0.1 MG TAB PO PRN (10:02)
[2017-12-23] MEDS ORDERED: Acetaminophen 500 MG TAB PO PRN (10:02)
[2017-12-23] MEDS ORDERED: Ondansetron ODT 4 MG TAB PO PRN (10:02)
[2017-12-23] MEDS ORDERED: hydrALAZINE 20 MG/ML VIAL SLOW IVP PRN (10:02)
[2017-12-23] MEDS ORDERED: Nitroglycerin 0.4 MG TAB (25 Tab Bottle) PO PRN (10:02)
--- NOTE | 2017-12-23 10:49 | HP ---
PRIMARY CARE PROVIDER: Dr. Brittni High at [facility]. PRIMARY SHIPPING SERVICES SALES REPRESENTATIVE: Dr. Torrey Duenas. CHIEF COMPLAINT: Shortness of breath and chest pressure. HISTORY OF PRESENT ILLNESS: This is an 87-year-old male who presented to [facility] Emergency Department after experiencing sudden onset of chest pressure and shortness of breath whi ch awakened him from sleep approximately 10:00 p.m. on 12/22/2017. The patient states he had just re tired for bed when he was sleeping, suddenly awakening with shortness of breath. The patient sat up to catch his breath when he felt chest pressure. The patient notified his family members who notifie d EMS personnel. Patient was apparently treated with sublingual nitroglycerin and recommended for ev aluation in the emergency room. Patient states the pressure resolved en route to the emergency depar tment and has resolved completely. The patient denied any nausea, vomiting, diaphoresis, fever, chil ls or cough. The patient's history is significant for recent admission to [facility] on through 12/13/2017 after presenting with acute on chronic systolic heart failure exacerbation in addition to undergoing a biventricular ICD upgrade procedure. The patient states he has had no s pecific difficulty after the ICD upgrade procedure and has been on his regular medication regimen. T he patient states he is followed up with the [facility] and has been monitored with slight adjus tment to his Coumadin dosing. The patient denied any hematemesis, hemoptysis or blood in his urine. The patient denied any specific jaw or left arm discomfort, unilateral weakness, difficulty with spe ech, or recent fall. The patient currently states he has no specific symptoms. In the emergency anu , patient underwent general evaluation including EKG showing AV sequential pacing without acute ST-T wave changes. The patient received aspirin 324 mg and was transferred to the telemetry unit. PAST MEDICAL HISTORY: 1. Acute on chronic combined systolic, diastolic congestive heart failure with ejection fraction of 20%-25%. 2. Sick sinus syndrome, status post biventricular ICD pacemaker upgrade on 11/2017. 3. Chronic atrial fibrillation with chronic anticoagulation with Coumadin. 4. Chronic kidney disease stage 3. 5. Hypertension. 6. Dyslipidemia. 7. Chronic macrocytic anemia. PAST SURGICAL HISTORY: 1. Status post pacemaker placement with subsequent biventricular upgrade in 11/2017. 2. Status post left total hip arthroplasty. 3. Status post hemicolectomy secondary to diverticulitis. 4. Status post hernia repair. 5. Status post EGD/colonoscopy with Medel's metaplasia. CURRENT MEDICATIONS: 1. Enteric coated aspirin 81 mg p.o. at bedtime. 2. Lipitor 20 mg p.o. at bedtime. 3. Coreg 25 mg p.o. b.i.d. 4. Lasix 20 mg p.o. b.i.d. 5. Lisinopril 20 mg p.o. b.i.d. 6. Protonix 40 mg p.o. daily. 7. Potassium chloride 10 mEq p.o. daily. 8. Coumadin 5 mg half a tab on Saturday, Saturday, , Saturday, and Saturday with 5 mg on Saturday and Saturday. 9. Aldactone 12.5 mg p.o. daily. ALLERGIES: No known drug allergies. FAMILY HISTORY: Father with history of aneurysm. Mother of complications of old age. SOCIAL HISTORY: Patient resides in [place], [place]. . Uses smokeless tobacco weekly. Ambula selin with use of a cane. No alcohol or illicit drug use. REVIEW OF SYSTEMS: The following complete review of systems was negative, unless otherwise mentioned in the HPI or below: Constitutional: Weight loss or gain, ability to conduct usual activities. Skin: Rash, itching. Eyes: Double vision, pain. ENT/Mouth: Nose bleeding, neck stiffness, pain, tenderness. Cardiovascular: Palpitations, dyspnea on exertion, orthopnea. Respiratory: Shortness of breath, wheezing, cough, hemoptysis, fever or night sweats. Gastrointestinal: Poor appetite, abdominal pain, heartburn, nausea, vomiting, constipation, or diarr hea. Genitourinary: Urgency, frequency, dysuria, nocturia. Musculoskeletal: Pain, swelling. Neurologic/Psychiatric: Anxiety, depression. Allergy/Immunologic: Skin rash, bleeding tendency. Otherwise negative except as stated per HPI. PHYSICAL EXAMINATION: VITAL SIGNS: Currently, blood pressure 132/70, pulse 60, respiratory rate 16, temperature 97.8 degre es Fahrenheit, O2 saturation 96% on room air. GENERAL APPEARANCE: This is an 87-year-old male, alert and oriented x3, pleasant, responsi ve, in no acute distress. HEENT: Pupils are equal, round, and reactive to light and accommodation. Extraocular muscles are in tact. No scleral icterus, no conjunctival injection. Nares patent. OP is clear. Teeth in fair rep air. NECK: Supple, no cervical adenopathy, no thyromegaly, no carotid bruits, no JVD appreciated. Cervic al spine is with full active and passive range of motion. CHEST: Lungs are clear to auscultation bilaterally. CARDIOVASCULAR: S1, S2, without noted murmur, rub or gallop. Left upper chest wall with ICD device in place with ecchymosis at the surgical site. Incision is clean, dry, and intact without expressibl e discharge. ABDOMEN: Rounded, soft, nontender, nondistended. Bowel sounds are positive in all four quadrants. There is no hepatosplenomegaly, no abdominal bruits, no rebound or guarding appreciated. EXTREMITIES: Warm and dry with fair turgor. No clubbing, cyanosis or asymmetric edema appreciated. Pulses palpable distally at the dorsalis pedis, posterior tibial, and popliteal arteries bilaterally . Capillary refill is less than 2 seconds. NEUROLOGIC: Cranial nerves II-XII are grossly intact. No focal or lateralizing signs appreciated. PERTINENT LABORATORY DATA AND IMAGING DATA: Sodium 138, potassium 4.5, chloride 110, CO2 of 21, BUN 27, creatinine 1.51, estimated GFR of 44, glucose 96, calcium 8.5, total bilirubin 2.1, AST 34, ALT o f 21, alkaline phosphatase 82, troponin I ranged between 0.010-0.073. BNP 307 previously noted 1112 on 12/10/2017. CBC showed white blood cell count 8.2, hemoglobin 13, hematocrit 38, MCV 103, platele t count 138 with normal differential. Portable chest x-ray dated 12/23/2017 showed left-sided transv enous defibrillator in place. No pneumothorax. No overt pulmonary edema. EKG dated 12/23/2017 by rowan herrera interpretation shows AV sequential dual chamber pacemaker device with heart rates in the 60s. ASSESSMENT AND PLAN: 1. Acute dyspnea. Patient will be placed in observation status on the telemetry unit. Exact etiolo gy is unclear. Symptoms have resolved currently. No current evidence to suggest acute congestive he art failure exacerbation with chest imaging unremarkable. BNP is approximately 800 less than previou s BNP noted 12/09/2017. We will continue to monitor clinically. 2. Elevated troponin I. Mild elevation in the context of known systolic/diastolic heart failure. W e will consult Cardiology Service for any further recommendations. Continue aspirin 81 mg daily, Cor eg 25 mg b.i.d., and Lipitor 20 mg daily. 3. Chronic atrial fibrillation with chronic anticoagulation. We will continue Coumadin with goal IN R of 2-3. Repeat PT/INR in the a.m. 4. Chronic kidney disease stage 3. Avoid nephrotoxic agents and contrast media. Repeat creatinine and monitor renal function during the hospital course. 5. Prophylaxis. Sequential compression devices while in bed. Protonix 40 mg p.o. daily. 6. Code status is FULL. Surrogate medical decision maker is patient's spouse.
[2017-12-23 11:49] LABS: INR-International Normal Ratio 1.9; Prothrombin Time 21.5 SEC (12.0-14.7)
[2017-12-23] MEDS ORDERED: Warfarin Sodium 2.5 MG TAB PO SCH (19:15)
[2017-12-23] MEDS: Lisinopril 20 MG TAB PO SCH (20:57)
[2017-12-23] MEDS: Atorvastatin Calcium 20 MG TAB PO SCH (20:58)
[2017-12-23] MEDS: Carvedilol 25 MG TAB PO SCH (20:58)
--- NOTE | 2017-12-24 01:30 | CON ---
DATE OF CONSULTATION: 12/23/2017 HISTORY: Bobby Saavedra is an 87-year-old white male, patient of Dr. Duenas, with initial pacemaker being placed in 1998. He was recently admitted with increased shortness of breath on 12/09/2017. Echocardiogram revealed ejection fraction of 25%-30%. He underwent upgrade to a biventricular ICD during that admission. He states that after that was placed, he noted significant improvement in his respiratory status. His last echocardiogram showed fairly normal ejection fraction. He states that he has been doing well at home and then last night, awoke short of breath and felt as if there was a heavy weight on his chest. He states he had difficulty in getting his breath. The pain did not seem to be pleuritic in nature. He did not have any diaphoresis, nausea, or vomiting. He called his grandson, who then called EMS and he was brought for further evaluation. He states the total duration of his episode was approximately 1 hour. PAST MEDICAL HISTORY: Combined systolic and diastolic heart failure with last ejection fraction of 25%-30%, sick sinus syndrome, paroxysmal atrial fibrillation, chronic kidney disease, hypertension, hyperlipidemia, anemia. OPERATIONS: Pacemakers and ICD placement, left total hip replacement, hernia repair, hemicolectomy for diverticulitis. MEDICATIONS: Aspirin 81 at bedtime, atorvastatin 20 at bedtime, carvedilol 25 b.i.d., furosemide 20 mg b.i.d. p.r.n., lisinopril 20 b.i.d., pantoprazole 40 daily, KCl 10 mEq daily, Aldactone 12.5 mg daily, warfarin as directed. ALLERGIES: None. SOCIAL HISTORY: He does not smoke, but does use smokeless tobacco. He does not drink. FAMILY HISTORY: Unremarkable for coronary artery disease. REVIEW OF SYSTEMS: Twelve-point review of systems is unremarkable. PHYSICAL EXAMINATION: VITAL SIGNS: Blood pressure 130/62, pulse of 63. HEENT: PERRL. NECK: Supple. CHEST: Clear. CARDIAC: S1 and S2 are normal without any S3, S4, or murmurs. ABDOMEN: Normal bowel sounds without tenderness, organomegaly. EXTREMITIES: No clubbing, cyanosis, or edema. NEUROLOGIC: Grossly intact. SKIN: Warm and dry. LABORATORY DATA: EKG revealed A-V pacing. INR is 1.9. Hemoglobin 12.6, hematocrit 37.5, white count 8200, platelets 138,000. Sodium 138, potassium 4.5 , chloride 110, carbon dioxide 21, BUN 27, creatinine 1.51. Troponin I has gone from normal up to 0.073. BNP is 306.5. IMPRESSION: 1. Prolonged episode of chest pressure and shortness of breath with slight increase in troponin. 2. Chronic systolic and diastolic heart failure with last ejection fraction of 25%-30%. 3. Recent upgrade 2 weeks ago to a biventricular implantable cardioverter defibrillator. 4. Hypertension. 5. Hypercholesterolemia. 6. Chronic kidney disease. PLAN: The patient has already received his dose of Coumadin tonight. It will be held thereafter. INRs will be checked on a daily basis. Consideration will be given to stress testing versus cardiac catheterization. Dr. Duenas will see him in the morning for further decisions. FANTA
[2017-12-24 06:02] LABS: INR-International Normal Ratio 1.9; Prothrombin Time 21.5 SEC (12.0-14.7)
[2017-12-24 06:12] LABS: ALT (SGPT) 16 U/L (8-55); AST (SGOT) 30 U/L (5-34); Alkaline Phosphatase 76 U/L (40-150); Anion Gap 11 mmol/L (10-20); BUN (Urea Nitrogen) 27 mg/dL (8.4-25.7); Bilirubin, Total 1.6 mg/dL (0.2-1.2); Calc. Creatinine Clearance 63 mL/min (70-130); Calcium 8.6 mg/dL (7.8-10.44); Carbon Dioxide 20 mmol/L (23-31); Chloride 112 mmol/L (98-107); Estimated GFR-MDRD 57; Globulin 3.1 g/dL (2.4-3.5); Glucose 93 mg/dL (83-110); Potassium 4.2 mmol/L (3.5-5.1); Protein, Total 6.1 g/dL (5.8-8.1); Sodium 139 mmol/L (136-145)
[2017-12-24] MEDS: Carvedilol 25 MG TAB PO SCH ×2 (11:19→20:32)
[2017-12-24] MEDS: Potassium Chloride 10 MEQ TAB PO SCH (11:20)
[2017-12-24] MEDS: Lisinopril 20 MG TAB PO SCH ×2 (11:20→22:03)
[2017-12-24] MEDS: Spironolactone 25 MG TAB PO SCH (11:20)
[2017-12-24 11:44] LABS: Hemoglobin 12.9 g/dL (14.0-18.0); Hypochromia SLIGHT = 6-15 cells (100X) (0-5/hpf); Lymphocytes 37 % (21-51); MDiff Complete? YES; Mean Corpuscular HGB CONC 33.6 g/dL (32.0-36.0); Mean Corpuscular Hemoglobin 34.5 pg (27.0-31.0); Mean Platelet Volume 8.6 fL (7.4-10.4); Monocytes 6 % (0-10); Neutrophil 57 % (42-75); PLT Morphology Comment Appears Adequate; Platelet Count 160 thou/uL (130-400); Polychromasia SLIGHT = 2-3 cells (100X) (0-2/hpf); RBC Distribution Width 11.9 % (11.5-14.5); Red Blood Cell (RBC) Count 3.75 mill/uL (4.70-6.10); White Blood Cell (WBC) Count 7.8 thou/uL (4.8-10.8)
[2017-12-24] MEDS ORDERED: ADENOSINE 60 MG/20 ML VIAL ONE (15:22)
--- NOTE | 2017-12-24 16:20 | NM ---
MYOCARDIAL PERFUSION STUDY: Date: 12/24/17 HISTORY: History of sick sinus syndrome, chest pain, hypertension, and dyslipidemia. RADIOPHARMACEUTICALS: 30.9 mCi technetium-99m sestamibi, IV at stress. 9.1 mCi technetium-99m sestamibi, IV at rest. MEDICATIONS: 56 mg (18.7 mL) of Adenosine, IV. COMPARISON: None available. FINDINGS: There is no significant reversible defect seen between the stress and resting acquisitions. Gated brooke ges demonstrate hypokinesis primarily involving the septum and inferior left ventricular wall and at the apex. Calculated left ventricular ejection fraction is 48%. IMPRESSION: 1. No significant reversible defect seen to suggest ischemia. 2. Hypokinesis involving the septum and inferior left ventricular wall and apex. 3. Diminished LVEF of 48%. POS: [facility]
--- NOTE | 2017-12-24 16:23 | PDOC.PN ---
- Subjective Encounter Start Date: 12/24/17 Encounter Start Time: 16:15 Subjective: f/u for dyspnea and elevated troponin I. TURKEY EGG GATHERER showing no reversible -: ischemia and EF 48%. - Objective Resuscitation Status: Resuscitation Status FULL:Full Resuscitation MAR Reviewed: Yes Vital Signs & Weight: Vital Signs (12 hours) Temp Pulse Resp BP BP Pulse Ox 12/24/17 16:00 97.5 F L 89 16 107/65 92 L 12/24/17 11:52 97.5 F L 93 16 141/83 H 93 L 12/24/17 11:20 123/69 12/24/17 08:00 97.9 F 61 16 144/72 H 95 12/24/17 07:48 95 Weight Weight 220 lb 12.8 oz I&O: 12/23/17 12/24/17 12/25/17 06:59 06:59 06:59 Intake Total 1470 0 Balance 1470 0 Result Diagrams: 12/24/17 05:42 12/24/17 05:42 Additional Labs: Laboratory Tests 12/09/17 12/09/17 12/10/17 09:03 15:18 05:16 INR 4.0 3.7 Creatinine Estimated GFR (MDRD) Troponin I B-Natriuretic Peptide 1796.0 H TSH 3rd Generation 12/10/17 12/10/17 12/23/17 05:16 05:16 01:53 INR Creatinine Estimated GFR (MDRD) Troponin I Less than 0.010 B-Natriuretic Peptide 1111.9 H TSH 3rd Generation 1.1721 12/23/17 12/23/17 12/23/17 01:53 05:28 08:11 INR Creatinine 1.51 H Estimated GFR (MDRD) 44 Troponin I 0.043 H 0.073 H B-Natriuretic Peptide TSH 3rd Generation 12/23/17 12/24/17 12/24/17 10:54 05:42 05:42 INR 1.9 1.9 Creatinine Estimated GFR (MDRD) 57 Troponin I B-Natriuretic Peptide [facility] 3rd Generation Radiology Reviewed by me: Yes (TURKEY EGG GATHERER - no reversible ischemia, EF 48%) EKG Reviewed by me: Yes (Tele - AV pacing) Phys Exam - Physical Examination Constitutional: NAD HEENT: PERRLA, sclera anicteric, oral pharynx no lesions Neck: no nodes, no JVD, supple, full ROM L upper chest with PM in place, +ecchymosis noted Respiratory: no wheezing, no rales, no rhonchi, clear to auscultation bilateral S1, S2 Cardiovascular: no significant murmur, no rub, irregular Gastrointestinal: soft, non-tender, no distention, positive bowel sounds Musculoskeletal: no edema, pulses present Neurological: normal sensation, moves all 4 limbs Psychiatric: normal affect, A&O x 3 Skin: normal turgor, cap refill <2 seconds Dx/Plan (1) Acute dyspnea Code(s): R06.00 - DYSPNEA, UNSPECIFIED Status: Acute Comment: Likely multifactorial, resolved, no evidence of pulmonary edema (2) Demand ischemia of myocardium Code(s): I24.8 - OTHER FORMS OF ACUTE ISCHEMIC HEART DISEASE Status: Acute Comment: TURKEY EGG GATHERER negative for reversible ischemia, continue ASA, Lipitor, Coreg (3) Atrial fibrillation Code(s): I48.91 - UNSPECIFIED ATRIAL FIBRILLATION Status: Chronic Qualifiers: Atrial fibrillation type: chronic Qualified Code(s): I48.2 - Chronic atrial fibrillation Comment: AV pacing with Bi-V pacer @ 95%, normal functioning pacer (4) Chronic anticoagulation Code(s): Z79.01 - WATER PURIFIER OPERATOR (CURRENT) USE OF ANTICOAGULANTS Status: Chronic Comment: Resume Coumadin (5) H/O cardiac pacemaker Code(s): Z95.0 - PRESENCE OF CARDIAC PACEMAKER Status: Chronic Comment: Upgraded to Bi-V pacemaker, stable, normal functioning device (6) Hypertension Code(s): I10 - ESSENTIAL (PRIMARY) HYPERTENSION Status: Chronic Qualifiers: Hypertension type: essential hypertension Qualified Code(s): I10 - Essential (primary) hypertension Comment: Continue Coreg and Lisinopril, serial monitoring (7) Sick sinus syndrome Code(s): I49.5 - SICK SINUS SYNDROME Status: Chronic Comment: See above - Plan social work msw, out of bed/ambulate, DVT proph w/SCDs Stable currently -: Continue medical mgmt -: ASA, Lipitor and Coreg -: Resume Coumadin with goal INR 2-3 -: 2D echo pending * AM lab: BMP
[2017-12-24] MEDS ORDERED: Warfarin Sodium 5 MG TAB PO SCH (17:00)
[2017-12-24] MEDS: Atorvastatin Calcium 20 MG TAB PO SCH (20:32)
[2017-12-25 04:19] LABS: Anion Gap 13 mmol/L (10-20); BUN (Urea Nitrogen) 30 mg/dL (8.4-25.7); Calc. Creatinine Clearance 70 mL/min (70-130); Calcium 8.2 mg/dL (7.8-10.44); Carbon Dioxide 17 mmol/L (23-31); Chloride 113 mmol/L (98-107); Estimated GFR-MDRD 64; Glucose 78 mg/dL (83-110); Potassium 4.6 mmol/L (3.5-5.1); Sodium 138 mmol/L (136-145)
[2017-12-25 04:42] VITALS: TEMP 98.6
[2017-12-25 08:01] VITALS: BP 110/67
--- NOTE | 2017-12-25 08:40 | PDOC.CTH ---
Cardiology Progress Note - Subjective The pt seen and examined. No overnight events. No cardiac complaints. He cont. complaining of SOB. - Objective Vital Signs Temp Pulse Resp BP BP Pulse Ox 12/25/17 08:00 98.6 F 67 16 110/67 95 12/25/17 04:00 98.6 F 65 18 95/43 L 94 L 12/25/17 00:55 100/55 L 12/25/17 00:00 98.2 F 75 18 90/50 L 95 12/24/17 22:03 101/45 L Weight 217 lb 3.2 oz 12/24/17 12/25/17 12/26/17 06:59 06:59 06:59 Intake Total 1470 460 Balance 1470 460 - Physical Examination General/Neuro: alert & oriented x3 Neck: no JVD present Lungs: CTA Heart: other: (irregular) Abdomen: soft Extremities: other: (No edema) - Telemetry Telemetry Rhythm: AV paced - Labs Result Diagrams: 12/24/17 05:42 12/25/17 03:29 Troponin/CKMB CK-MB (CK-2) 1.2 ng/mL (0-6.6) 12/23/17 01:53 Troponin I 0.073 ng/mL (< 0.028) H 12/23/17 08:11 - Assessment/Plan 1. Acute dyspnea - Cont. 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 Echo is taking now. 2. Hx of BiV PM placement on 12/12/17 - stable 3. Chronic AFib - on Coumadin 4. HTN - stable 5. Hyperlipidemia - On Statin 6. CKD - Stable 7. Anemia - stable MAR reviewed * Stress test on 12/24/17 showed no ischemia, hyperkinesis to septum, inferior LV wall and Sargent. Review of Systems - Review of Systems Constitutional: reports: no symptoms reported EENTM: reports: no symptoms reported Respiratory: reports: shortness of breath Cardiac (ROS): reports: no symptoms reported ABD/GI: reports: no symptoms reported : reports: no symptoms reported Musculoskeletal: reports: no symptoms reported Skin: reports: no symptoms reported Neurological: reports: no symptoms reported
[2017-12-25] MEDS: Potassium Chloride 10 MEQ TAB PO SCH (09:12)
[2017-12-25] MEDS: Spironolactone 25 MG TAB PO SCH (09:12)
[2017-12-25] MEDS: Carvedilol 25 MG TAB PO SCH (09:12)
[2017-12-25] MEDS: Lisinopril 20 MG TAB PO SCH (09:12)
[2017-12-25] MEDS ORDERED: Warfarin Sodium 2.5 MG TAB PO SCH (17:00)
--- NOTE | 2017-12-25 19:45 | DIS ---
DATE OF ADMISSION: 12/23/2017 DATE OF DISCHARGE: 12/25/2017 DISCHARGE DIAGNOSES: 1. Acute dyspnea, multifactorial, improved. 2. Demand ischemia of the myocardium. 3. Chronic atrial fibrillation with chronic anticoagulation with Coumadin. 4. Status post biventricular pacemaker placement. 5. Hypertension, stable. 6. 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 CONSULTATIONS: Dr. Duenas and Joshua with Cardiology Service. PERTINENT LABORATORY AND X-RAY FINDINGS: Creatinine ranged between 1.09-1.51, estimated GFR ranging between 44-64, troponin I ranged between 0.010-0.073. PT 21.5, INR 1.9 on 12/24/2017. BNP of 307, p reviously noted 1112 on 12/10/2017. Portable chest x-ray dated 12/23/2017 showed left-sided transvenous defibrillator in place. Improved aeration in bilateral lung bases. Cardiolite stress test dated 12/24/2017 showed no evidence for re versible or fixed ischemia with calculated ejection fraction of 48%. Hypokinesis in the septum and i nferior left ventricular wall and apex. HOSPITAL COURSE: Patient was observed on the telemetry unit after initially presenting with shortnes s of breath and chest pressure. The patient underwent extensive evaluation including metabolic scree viktoriya showing mild elevation in troponin I. Due to patient's history of systolic congestive heart sincere lure as well as recent biventricular upgrade pacemaker placement, the patient underwent evaluation by the Cardiology Service. Cardiolite stress testing was performed showing no evidence of reversible o r fixed ischemia with calculated ejection fraction of 48%. Telemetry monitoring showed a ventricular paced rhythm with heart rates in the 60s. Interrogation of patient's current pacemaker device showe d normal functioning device. The patient underwent a repeat 2D transthoracic echocardiogram on 12/25 with final results pending at the time of this dictation. Overall, patient did remain clinical ly stable throughout the hospital course, tolerating regular oral intake, and ambulating without assi stance or difficulty. I have examined the patient at time of discharge and discussed followup instru ctions, at which point the patient verbalized understanding and agreement. Overall, patient clinical ly stable and ready for discharge on 12/25/2017. DISCHARGE MEDICATIONS: 1. Enteric coated aspirin 81 mg p.o. at bedtime. 2. Lipitor 20 mg p.o. at bedtime. 3. Coreg 25 mg p.o. b.i.d. 4. Lasix 20 mg p.o. b.i.d. 5. Lisinopril 20 mg p.o. b.i.d. 6. Protonix 40 mg p.o. daily. 7. Potassium chloride 10 mEq p.o. daily. 8. Coumadin 5 mg half a tab every Saturday, Saturday, Saturday, and 5 mg on Saturday, , Saturday , and Saturday. 9. Aldactone 12.5 mg p.o. daily. FOLLOWUP: 1. The patient to follow up with Dr. Otilia Fernandes on 12/26/2017 at 1:15 p.m. 2. The patient will follow up with Dr. Torrey Duenas on 12/26/2017. 3. The patient will follow up with Dr. Davis on 12/26/2017. 4. The patient will follow up with the [facility] for INR monitoring. 5. Patient will also follow up with the [facility]. CONDITION ON DISCHARGE: Fair. ACTIVITY: Ad julio. DIET: Heart healthy and ADA. CODE STATUS: FULL. DISPOSITION: Home, 12/25/2017.
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
== END 2017-12-25 13:56 | disposition home or self-care (01) ==
LOC: ERS 01:22 → 2SE 03:05
PROVIDERS: ADMIT Internal Medicine; ATTEND Internal Medicine
DX: R07.89 Other chest pain (principal); R06.02 Shortness of breath; I13.0 Hypertensive heart and chronic kidney disease with heart failure and stage 1 through stage 4 chronic kidney disease, or unspecified chronic kidney disease; N18.3 Chronic kidney disease, stage 3 (moderate); I50.42 Chronic combined systolic (congestive) and diastolic (congestive) heart failure; I49.5 Sick sinus syndrome; I48.2 Chronic atrial fibrillation; I24.8 Other forms of acute ischemic heart disease; E78.5 Hyperlipidemia, unspecified; D53.9 Nutritional anemia, unspecified; F17.290 Nicotine dependence, other tobacco product, uncomplicated; E78.00 Pure hypercholesterolemia, unspecified; Z79.82 Long term (current) use of aspirin; Z79.01 Long term (current) use of anticoagulants; Z79.899 Other long term (current) drug therapy; Z95.810 Presence of automatic (implantable) cardiac defibrillator; Z96.642 Presence of left artificial hip joint; Z90.49 Acquired absence of other specified parts of digestive tract
CPT/HCPCS: 71045; 78452; 80048; 80053 ×2; 82553; 83880; 84484 ×2; 85007; 85025; 85027; 85610 ×2; 93005; 93017; 93306; 94760 ×3; 99285; A9500; G0378 ×3; 36415; J0153

== ENCOUNTER 2018-04-27 20:41 | Emergency (ER) | payer MEDICARE, OTHER ==
--- NOTE | 2018-04-27 22:56 | CT ---
BRAIN CT WITHOUT IV CONTRAST: History: Head injury following a fall. Patient is on Warfarin. Comparison: 01-02-18 FINDINGS: There is some old encephalomalacia in the left cerebellar hemisphere with some associated brain volum e loss. There is some bilateral atrophy and chronic white matter ischemic change. No focal mass or mi dline shift. No intra or extraaxial hemorrhage. Mucosal changes within the left maxillary and left et hmoid sinuses. Mastoids are clear. IMPRESSION: No mass or hemorrhage or other acute intracranial process. No mass or bleed. Old encephalomalacic jhonathan nges in the left cerebellar hemisphere. POS: [facility]
== END 2018-04-27 21:42 | disposition home or self-care (01) ==
LOC: ERS 20:41
DX: S00.03XA Contusion of scalp, initial encounter (principal); I48.91 Unspecified atrial fibrillation; E78.5 Hyperlipidemia, unspecified; I11.0 Hypertensive heart disease with heart failure; I50.9 Heart failure, unspecified; Z79.899 Other long term (current) drug therapy; Z79.01 Long term (current) use of anticoagulants; W19.XXXA Unspecified fall, initial encounter
CPT/HCPCS: 70450

== ENCOUNTER 2018-04-28 00:53 | Emergency (ER) | payer MEDICARE, OTHER | END 2018-04-28 01:43 | disposition home or self-care (01) | LOC: ERS 00:53 | DX: S41.111A Laceration without foreign body of right upper arm, initial encounter (principal); I48.91 Unspecified atrial fibrillation; E78.5 Hyperlipidemia, unspecified; I11.0 Hypertensive heart disease with heart failure; I50.9 Heart failure, unspecified; Z79.01 Long term (current) use of anticoagulants; Z79.899 Other long term (current) drug therapy; W19.XXXA Unspecified fall, initial encounter ==

== ENCOUNTER 2018-04-28 22:10 | Inpatient (IN) | payer MEDICARE, OTHER ==
[2018-04-28 22:27] LABS: #Eosinphils 0.2 thou/uL (0.0-0.7); #Lymphocytes 2.8 thou/uL (1.20-3.40); #Monocytes 1.3 thou/uL (0.11-0.59); #Neutrophils 7.1 thou/uL (1.40-6.50); %Basophils 0.4 % (0.0-1.0); %Eosinophils 1.6 % (0.0-10.0); %Lymphocytes 24.5 % (21.0-51.0); %Monocytes 11.2 % (0.0-10.0); %Neutrophils 62.3 % (42.0-75.0); Hemoglobin 11.9 g/dL (14.0-18.0); Mean Corpuscular HGB CONC 32.3 g/dL (32.0-36.0); Mean Corpuscular Hemoglobin 33.5 pg (27.0-31.0); Mean Platelet Volume 8.2 fL (7.4-10.4); Platelet Count 130 thou/uL (130-400); RBC Distribution Width 11.5 % (11.5-14.5); Red Blood Cell (RBC) Count 3.56 mill/uL (4.70-6.10); White Blood Cell (WBC) Count 11.4 thou/uL (4.8-10.8)
[2018-04-28 22:29] LABS: INR-International Normal Ratio 2.2; PTT 25.9 SEC (22.9-36.1); Prothrombin Time 24.8 SEC (12.0-14.7)
[2018-04-28 22:37] LABS: ALT (SGPT) 11 U/L (8-55); AST (SGOT) 26 U/L (5-34); Alkaline Phosphatase 73 U/L (40-150); Anion Gap 17 mmol/L (10-20); BUN (Urea Nitrogen) 56 mg/dL (8.4-25.7); Bilirubin, Total 1.4 mg/dL (0.2-1.2); Calc. Creatinine Clearance 0 mL/min (70-130); Calcium 8.4 mg/dL (7.8-10.44); Carbon Dioxide 15 mmol/L (23-31); Chloride 110 mmol/L (98-107); Estimated GFR-MDRD 20; Glucose 128 mg/dL (83-110); Potassium 4.8 mmol/L (3.5-5.1); Sodium 137 mmol/L (136-145)
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
--- NOTE | 2018-04-28 22:45 | RAD ---
RADIOGRAPH PELVIS ONE VIEW: 04/28/2018 HISTORY: An 87-year-old male, status post acute pelvic trauma due to fall. FINDINGS: No acute fracture identified. No dislocation. Left hip replacement hardware. Pelvic ring appears t o be grossly intact. Surgical clips over the sacrum. IMPRESSION: 1. No acute fracture identified. 2. Status post total left hip replacement arthroplasty. POS: [facility]
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
[2018-04-29 00:56] LABS: Anion Gap 15 mmol/L (10-20); BUN (Urea Nitrogen) 56 mg/dL (8.4-25.7); Calc. Creatinine Clearance 0 mL/min (70-130); Calcium 8.4 mg/dL (7.8-10.44); Carbon Dioxide 19 mmol/L (23-31); Chloride 109 mmol/L (98-107); Estimated GFR-MDRD 21; Glucose 111 mg/dL (83-110); Potassium 4.7 mmol/L (3.5-5.1); Sodium 138 mmol/L (136-145)
[2018-04-29 02:30] VITALS: BMI 31.9
[2018-04-29] MEDS: Lactated Ringer's 1,000 ML IV SCH ×2 (03:25→08:46)
[2018-04-29 08:23] LABS: Anion Gap 11 mmol/L (10-20); BUN (Urea Nitrogen) 57 mg/dL (8.4-25.7); Calc. Creatinine Clearance 27 mL/min (70-130); Calcium 8.3 mg/dL (7.8-10.44); Carbon Dioxide 22 mmol/L (23-31); Chloride 110 mmol/L (98-107); Estimated GFR-MDRD 22; Glucose 145 mg/dL (83-110); Potassium 4.4 mmol/L (3.5-5.1); Sodium 139 mmol/L (136-145)
[2018-04-29] MEDS ORDERED: Acetaminophen 650 MG Suppository PR PRN (12:42)
[2018-04-29] MEDS ORDERED: Acetaminophen 325 MG TAB PO PRN (12:42)
[2018-04-29] MEDS ORDERED: WARFARIN PO PRN (13:10)
[2018-04-29] MEDS: Sodium Chloride 0.9% 1,000 ML IV SCH (14:12)
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
[2018-04-29 16:51] LABS: Anion Gap 12 mmol/L (10-20); BUN (Urea Nitrogen) 57 mg/dL (8.4-25.7); Calc. Creatinine Clearance 28 mL/min (70-130); Calcium 8.1 mg/dL (7.8-10.44); Carbon Dioxide 19 mmol/L (23-31); Chloride 113 mmol/L (98-107); Estimated GFR-MDRD 23; Glucose 116 mg/dL (83-110); Potassium 4.7 mmol/L (3.5-5.1); Sodium 139 mmol/L (136-145)
[2018-04-29] MEDS ORDERED: Warfarin Sodium 2.5 MG TAB PO SCH (17:00)
--- NOTE | 2018-04-29 19:38 | CON ---
DATE OF CONSULTATION: REASON FOR CONSULTATION: Elevated creatinine. HISTORY OF PRESENT ILLNESS: This is a very pleasant 87-year-old gentleman who presented to the hospital after a fall. The patient had no syncope, headache, numbness, tingling, or weakness. Denies any nausea, vomiting, chest pain, or NSAID use. The patient had a creatinine of 1.4 in February and which increased to 1.9 in April and on 04/28, increased to 3.0 and is 2.7 today. The patient denies headache, numbness, tingling, or weakness. Denies any nausea, vomiting, or chest pain. PAST MEDICAL HISTORY: Significant for hypertension, anemia, CKD, acute kidney injury, history of sick sinus syndrome, ICD, atrial fibrillation, chronic anticoagulation, anemia, history of arthroplasty, hemicolectomy, colonoscopy, Medel's metaplasia. FAMILY HISTORY: Negative for ESRD. SOCIAL HISTORY: No alcohol or drug use. MEDICATIONS: Home medications list reviewed. Hospital medication list reviewed. REVIEW OF SYSTEMS: 15-point review of system was performed, negative except for positives noted above. NECK: No swelling or lumps. NOSE: No epistaxis or discharge. EYES: No diplopia or pain. MUSCULOSKELETAL: No joint pain. NEUROPSYCHIATIC SYSTEMS: No suicidal ideation. No ideation. SKIN: Denies any rash or ulcer. CONSTITUTIONAL: No fever or chills. PHYSICAL EXAMINATION: GENERAL: The patient is awake and alert. VITAL SIGNS: Afebrile, pulse 79, breathing is 16, blood pressure 91/57. GENERAL APPEARANCE AND MENTAL STATUS: Fair. HEAD/NECK: Normocephalic. Atraumatic. EYES: EOMI. No deformity. EARS: Clear. No ulcers. NOSE: Intact. No lesions. MOUTH: Clear. No discharge. THROAT: Clear. No exudate. LUNGS: Clear. No crackles. CARDIAC: S1, S2. No rub. ABDOMEN: Benign. Bowel sounds positive. GENITALIA/RECTUM: Sarah absent. BACK/EXTREMITIES: Edema 0+. NEUROLOGICAL: Alert and motor intact. SKIN: LYMPHATICS: LABORATORY DATA: Hemoglobin is 11.9. Creatinine 2.7. ASSESSMENT AND PLAN: 1. Acute kidney injury due to cardiorenal syndrome. Continue gentle hydration. Medication based on GFR appropriate. Avoid NSAIDs. 2. Anemia, stable. Medication based on GFR appropriate. No indication for dialysis. Job ID: [id number]
[2018-04-29] MEDS: Carvedilol 25 MG TAB PO SCH (20:28)
[2018-04-29] MEDS: Atorvastatin Calcium 20 MG TAB PO SCH (20:28)
--- NOTE | 2018-04-30 02:44 | CON ---
DATE OF CONSULTATION: PRIMARY CARE PHYSICIAN: Brittni High PA-C. PRIMARY CORE JAVA ENGINEER: Dr. Majo Duenas. REFERRING DOCTOR: Dr. Reaves. REASON FOR CARDIOLOGY CONSULT: Coumadin management. HISTORY OF PRESENT ILLNESS: Mr. Saavedra is an 87-year-old male with significant history of chronic atrial fibrillation with Coumadin, status post biventricular pacemaker placement in November of 2017, chronic combined heart failure, and chronic kidney disease. The patient fell two days ago. He tripped on the carpet and he fell. He denies any syncope or lightheadedness. He went to the emergency department and the patient was discharged the same day due to the normal CT scan. The patient have to go to [facility] Emergency Department for skin tears, which continued bleeding. The patient had the sutures placed, but yesterday evening after he went to the bathroom, he noticed that he was so weak and he could not get up. Due to those reasons, the patient was transferred to the emergency department for further evaluation and treatment. The patient underwent biventricular pacemaker placement in November 2017 for a low EF from 25 to 30 percent. The patient's echocardiogram in December 2017 shows EF 50%, mildly dilated LA, mild mitral valve regurgitation, mild to moderate aortic valve regurgitation, mild tricuspid regurgitation, and mild pulmonic valve regurgitation. The patient had a stress test in December 2017, which shows no ischemia. MEDICAL HISTORY: 1. Chronic atrial fibrillation. 2. Chronic combined heart failure. 3. Sick sinus syndrome. 4. Chronic kidney disease, stage 3. 5. Hypertension. 6. Hyperlipidemia. 7. Chronic microcytic anemia. SURGICAL HISTORY: 1. Pacemaker placement due to sick sinus syndrome, which is an upgrade to biventricular pacemaker in November 2017. 2. Left total hip arthroplasty in November 2017, hemicolectomy secondary to diverticulitis. 3. 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 FAMILY HISTORY: Significant for aneurysm. Mother due to complications of age. SOCIAL HISTORY: The patient denies tobacco, alcohol, or illicit drug abuse. ALLERGIES: HE HAS NO KNOWN DRUG ALLERGIES. HOME MEDICATIONS: 1. Lisinopril 20 mg twice a day. 2. Carvedilol 12.5 mg twice a day. 3. Aspirin 81 mg once a day. 4. Furosemide 20 mg twice a day. 5. Coumadin 5 mg once a day. 6. Protonix 40 mg once a day. 7. Lipitor 20 mg once a day. REVIEW OF SYSTEMS: A 12-point review of systems is negative unless otherwise mentioned in the HPI. PHYSICAL EXAMINATION: VITAL SIGNS: Blood pressure 96/56, temperature 98.2, pulse is 61, O2 saturation 92%, respiratory rate 20. GENERAL: The patient is alert and oriented x4, not in acute distress. HEAD: Normocephalic, atraumatic. EYES: Extraocular muscle movement intact. ENT AND MOUTH: Oral and nasal mucosa moist without lesions. RESPIRATORY: Clear to auscultate bilaterally, but diminished at the bases. CARDIOVASCULAR: Slightly irregularly irregular. There is no S3 or S4. No significant murmur, heaves, or thrill noted. Carotid pulses are present without bruit or thrill. NECK: No JVD. Neck is supple. Normal range of motion. EXTREMITIES: 2+ pulses in the bilateral upper and lower extremities. No edema in the lower extremities. ABDOMEN: Soft, nontender. No mass to palpitate. Bowel sounds are present. SKIN: He has a big [place]roy wrap to the right forearm and a big hematoma to the left hand and a bruise over the bilateral upper extremities. PSYCHIATRIC: The patient's mood is appropriate. NEUROLOGIC: The patient is alert and oriented x4, nonfocal. LABORATORY DATA: WBC 11.4, hemoglobin 11.9, and platelets 130. INR 2.2. Sodium 139, potassium 4.7, BUN 57, creatinine 2.63, glucose 116, calcium 8.1, and magnesium 1.9. AST 26, ALT 11, and troponin 0.016. The patient's chest x-ray shows small right pleural effusion, but thickening, scarring at the right pleural diaphragmatic interface and apparently chronic pulmonary parenchymal density at the right lateral lung base, ectasia and tortuosity of the thoracic aorta. No compelled evidence of acute intrathoracic disease. 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 ASSESSMENT AND PLAN: 1. Laceration and status post laceration and hemorrhage from previous fall. Hemoglobin level is stable at this moment. However, due to the history of status post fall, we would like to hold Coumadin at this moment and change to aspirin 81 mg once a day, although the patient has a history of chronic atrial fibrillation. 2. Chronic atrial fibrillation. The patient's heart rate is stable at this moment. We would like to stop Coumadin and change to aspirin 81 mg once a day. We would like to continue other current medication. 3. Acute kidney injury on chronic kidney disease stage 3. The patient is receiving normal saline at 75 mL an hour and also a chucking machine set up operator tool consult was ordered. 4. Chronic combined heart failure. The patient's condition is stable at this moment. We would like to continue to monitor. At this moment, the patient's respiratory status is stable with room air. 5. Hypertension. Actually, the patient is hypotensive at this moment. The patient is receiving normal saline at 70 mL an hour. We would like to continue to monitor. 6. Hyperlipidemia. The patient is on statin. 7. Status post biventricular pacemaker placement in November 2017. Last pacemaker interrogation shows normal function. We would like to continue to monitor. I believe he does not need any pacemaker interrogation at this time and during this admission. The patient become asymptomatic. Thank you very much for allowing the Cardiology Service to participate in the care of this patient. We will follow along the patient's care team and make further evaluation as appropriate. Job ID: [id number]
[2018-04-30] MEDS: Sodium Chloride 0.9% 1,000 ML IV SCH ×2 (05:48→18:53)
--- NOTE | 2018-04-30 07:11 | CON ---
DATE OF CONSULTATION: 04/29/2018 ADDENDUM: INDICATION FOR CONSULTATION: An 87-year-old gentleman with fall with abrasion to the right arm with bleeding and we were asked to see him and also has chronic atrial fibrillation, has undergone a biventricular pacemaker. He is stable at this time without any significant cardiac complaints or problems. We only were asked to see the patient regarding his oral anticoagulation. This gentleman has chronic atrial fibrillation. I would suggest we continue his oral anticoagulation at this time. He did not have a syncopal episode. He frankly denies this. He did become weak after he had been on the toilet, but did not appear even to have a syncopal or presyncopal episode at that time, he just was weak. He had simply fell on a rug and tripped which anyone could do and I would not stop his oral anticoagulation based on the one fall despite having some increased bleeding from the arm, I did explain to him that he needs to watch that very carefully and to apply pressure if he has any further episodes of bleeding, but if the patient had had a syncopal episode, this would be probably another issue and would certainly consider stopping his oral anticoagulation, but since it was a simple fall and he just needs to be more careful and he has not had problems like this in the past, then I would continue the medications. As far as his past medical history, social history, family history, review of systems, medications, please refer to the notes dictated by my nurse practitioner. PHYSICAL EXAMINATION: GENERAL: Reveals a well-developed, well-nourished gentleman, who is in no acute distress at this time. He is alert and oriented. VITAL SIGNS: His vital signs appeared to be relatively stable. He is slightly hypotensive, but otherwise remained stable. Blood pressure was 94/59. He is afebrile, heart rate is in the 60s, and he is pacing 100% of the time, respiratory rate is 20, O2 saturation is 95%. HEENT: Shows the head to be normocephalic and atraumatic. Carotid pulses are present. CHEST: Clear to auscultation without rales, rhonchi, or wheezing. CARDIOVASCULAR: Reveals a regular rate and rhythm. However, he is pacing 100%. He has underlying atrial fibrillation. ABDOMEN: Soft and is nontender. Positive bowel sounds are present. EXTREMITIES: No clubbing, cyanosis, or edema at this time. Pedal pulses are present. NEUROLOGIC: The patient appears to be fully intact at this time without any focal motor deficits. SKIN: Warm and dry. Skin does have multiple lacerations and bruising. The arms are wrapped in surgical dressings after the abrasions and bleeding. ASSESSMENT AND PLAN: 1. History of falls which were due to tripping over a rug. He has not had any previous falls of any significant degree and also has not had any syncopal episodes. He has chronic atrial fibrillation. We will continue his oral anticoagulations. 2. Chronic renal insufficiency. He is acute on chronic at this time with worsening of his creatinine, which appears now actually to be improving. He seems to be somewhat dehydrated and he is being rehydrated at this time. His ejection fraction in the last echocardiogram was 50% to 55%. He should be able to tolerate IV fluids. 3. History of hypertension. He still remains somewhat hypotensive. We will continue to rehydrate the patient. 4. History of diastolic heart failure. At this time, he appears to be euvolemic if not hypovolemic, and again IV fluids would be appropriate at this time. We will be more than happy to continue to follow the patient with you. Job ID: [id number]
[2018-04-30 07:54] LABS: #Eosinphils 0.3 thou/uL (0.0-0.7); #Lymphocytes 2.3 thou/uL (1.20-3.40); #Monocytes 0.7 thou/uL (0.11-0.59); #Neutrophils 4.9 thou/uL (1.40-6.50); %Basophils 0.2 % (0.0-1.0); %Eosinophils 3.5 % (0.0-10.0); %Lymphocytes 28.2 % (21.0-51.0); %Monocytes 8.4 % (0.0-10.0); %Neutrophils 59.7 % (42.0-75.0); Hemoglobin 10.7 g/dL (14.0-18.0); Mean Corpuscular HGB CONC 32.6 g/dL (32.0-36.0); Mean Corpuscular Hemoglobin 33.3 pg (27.0-31.0); Mean Platelet Volume 8.4 fL (7.4-10.4); Platelet Count 128 thou/uL (130-400); RBC Distribution Width 11.6 % (11.5-14.5); Red Blood Cell (RBC) Count 3.22 mill/uL (4.70-6.10); White Blood Cell (WBC) Count 8.1 thou/uL (4.8-10.8)
[2018-04-30 07:56] LABS: INR-International Normal Ratio 2.3; Prothrombin Time 25.4 SEC (12.0-14.7)
[2018-04-30 08:07] LABS: Anion Gap 10 mmol/L (10-20); BUN (Urea Nitrogen) 52 mg/dL (8.4-25.7); Calc. Creatinine Clearance 36 mL/min (70-130); Calcium 8.2 mg/dL (7.8-10.44); Carbon Dioxide 22 mmol/L (23-31); Chloride 113 mmol/L (98-107); Estimated GFR-MDRD 31; Glucose 92 mg/dL (83-110); Potassium 4.7 mmol/L (3.5-5.1); Sodium 140 mmol/L (136-145)
[2018-04-30] MEDS: Carvedilol 25 MG TAB PO SCH ×2 (09:13→19:59)
--- NOTE | 2018-04-30 11:20 | PRG ---
DATE OF SERVICE: 04/30/2018 SUBJECTIVE: An 87-year-old gentleman being seen for acute kidney injury. The patient denies nausea, vomiting, or chest pain. OBJECTIVE: GENERAL: The patient is awake and alert. VITAL SIGNS: Afebrile, pulse 87, breathing 16, and blood pressure 121/73. GENERAL APPEARANCE AND MENTAL STATUS: Fair. HEAD/NECK: Normocephalic. Atraumatic. EYES: EOMI. No deformity. EARS: Clear. No ulcers. NOSE: Intact. No lesions. MOUTH: Clear. No discharge. THROAT: Clear. No exudate. LUNGS: Clear. No crackles. CARDIAC: S1, S2. No rub. ABDOMEN: Benign. Bowel sounds positive. GENITALIA/RECTUM: Sarah absent. BACK/EXTREMITIES: Edema 0+. NEUROLOGICAL: Alert and motor intact. SKIN: LYMPHATICS: LABORATORY DATA: Labs show hemoglobin 10.7. Creatinine is 2.0, continuing to improve. ASSESSMENT AND PLAN: 1. Chronic kidney disease, stage 3, stable. 2. Hypertension. I would recommend decreasing the Coreg to 6.25. 3. Medication based on GFR appropriate. No indication for dialysis. Job ID: [id number]
--- NOTE | 2018-04-30 12:55 | PDOC.CTH ---
Cardiology Progress Note - Subjective The pt seen and examined. No overnight events. No cardiac complaints. - Objective Vital Signs Temp Pulse Resp BP Pulse Ox 04/30/18 07:54 99.3 F 87 18 121/73 93 L 04/30/18 03:58 98.8 F 70 20 95/59 L 92 L 04/30/18 01:41 99.8 F H 80 20 99/64 93 L Weight 210 lb 04/29/18 04/30/18 05/01/18 06:59 06:59 06:59 Intake Total 1470 Output Total 200 Balance 1470 -200 - Physical Examination General/Neuro: alert & oriented x3 Neck: no JVD present Lungs: CTA Heart: RRR Abdomen: soft Extremities: other: (No edema) - Labs Result Diagrams: 04/30/18 07:35 04/30/18 07:36 Troponin/CKMB Troponin I 0.016 ng/mL (< 0.028) 04/28/18 22:15 - Assessment/Plan 1. Chronic Afib with Coumadin - Holding Coumaidn at this moment; On ASA 81mg qd for now. Will resume Coumadin when INR < 2.0. 2. Chronic combined HF - stable with coreg, but not STAR/ARB 2/2 hx of CKD. May resume Lasix when VS is more stable. 3. hx of BiV PM placement 4. CKD stage 3 - stable 5. HTN - stable 6. Hyperlipidemia - on Statin 7. Anemia - MAR reviewed Pt. seen and eval. by me. I agree with the A/P by the CARGO AND CONTAINER INSPECTOR. We have discussed the pt.,plan. I spoke with the pt. and he was placed on coumadin in the beginning because of the expense of other OAC's.Chest clear.RRR.-pacing. Review of Systems - Review of Systems Constitutional: reports: no symptoms reported EENTM: reports: no symptoms reported Respiratory: reports: no symptoms reported Cardiac (ROS): reports: no symptoms reported ABD/GI: reports: no symptoms reported : reports: no symptoms reported Musculoskeletal: reports: no symptoms reported Skin: reports: no symptoms reported
--- NOTE | 2018-04-30 15:35 | PDOC.PN ---
- Subjective Encounter Start Date: 04/30/18 Encounter Start Time: 09:40 Pt seen for followup re: acute on chronic stage 3 CKD. Denies chest pain, shortness of breath, fevers or chills. - Objective Resuscitation Status - Order Detail: 04/29/18 12:42 Resuscitation Status Routine Resuscitation Status: FULL: Full Resuscitation Discussed with: patient Vital Signs & Weight: Vital Signs (12 hours) Temp Pulse Resp BP Pulse Ox Pulse Ox 04/30/18 12:00 98.4 F 58 L 18 101/62 94 L 04/30/18 10:09 96 04/30/18 07:54 99.3 F 87 18 121/73 93 L 04/30/18 03:58 98.8 F 70 20 95/59 L 92 L Weight Weight 210 lb I&O: 04/29/18 04/30/18 05/01/18 06:59 06:59 06:59 Intake Total 1470 Output Total 200 Balance 1470 -200 Result Diagrams: 04/30/18 07:35 04/30/18 07:36 Phys Exam - Physical Examination Obese HEENT: moist MMs, sclera anicteric, oral pharynx no lesions, 2+ tonsils Neck: no nodes, no JVD, supple, full ROM Respiratory: clear to auscultation bilateral Cardiovascular: RRR, no rub S1, S2 Gastrointestinal: soft, non-tender, no distention, positive bowel sounds Neurological: moves all 4 limbs Psychiatric: normal affect, A&O x 3 Deviation from normal: Bruises Dx/Plan (1) Acute worsening of stage 3 chronic kidney disease Code(s): N18.3 - CHRONIC KIDNEY DISEASE, STAGE 3 (MODERATE) Status: Acute Comment: Improved significantly, GFR 31 (2) Falls Code(s): W19.XXXA - UNSPECIFIED FALL, INITIAL ENCOUNTER Status: Acute Comment: PT/OT eval/tx (3) Chronic a-fib Code(s): I48.2 - CHRONIC ATRIAL FIBRILLATION Status: Chronic Comment: continue warfarin (4) Hyperlipidemia Code(s): E78.5 - HYPERLIPIDEMIA, UNSPECIFIED Status: Chronic Comment: continue statin (5) Hypertension Code(s): I10 - ESSENTIAL (PRIMARY) HYPERTENSION Status: Chronic Qualifiers: Hypertension type: essential hypertension Qualified Code(s): I10 - Essential (primary) hypertension Comment: controlled - Plan * . Review of Systems - Review of Systems Constitutional: negative: fever, chills, sweats, weakness, malaise Respiratory: Sputum. negative: Cough, Shortness of Breath, SOB with Excertion, Pleuritic Pain, Wheezing Cardiovascular: negative: chest pain, palpitations, orthopnea, paroxysmal nocturnal dyspnea, edema, light headedness Gastrointestinal: negative: Nausea, Vomiting, Abdominal Pain, Diarrhea, Constipation, Melena, Hematochezia Genitourinary: negative: Dysuria, Frequency, Incontinence, Hematuria, Retention Skin: Bruising - Medications/Allergies Allergies/Adverse Reactions: Allergies Allergy/AdvReac Type Severity Reaction Status Date / Time No Known Allergies Allergy Verified 04/29/18 02:12 Medications: Current Medications Acetaminophen (Tylenol) 650 mg PO Q4H PRN PRN Reason: Headache/Fever/Mild Pain (1-3) Acetaminophen (Tylenol) 650 mg [place] Q4H PRN PRN Reason: Headache/Fever/Mild Pain (1-3) Aspirin (Aspirin Chewable) 81 mg PO [facility] Last Admin: 04/29/18 20:28 Dose: 81 mg Atorvastatin Calcium (Lipitor) 20 mg PO [facility] Last Admin: 04/29/18 20:28 Dose: 20 mg Carvedilol (Coreg) 12.5 mg PO BID [facility] Last Admin: 04/30/18 09:13 Dose: 12.5 mg Sodium Chloride (Normal Saline 0.9%) 1,000 mls @ 70 mls/hr IV .[id number] [facility] Last Admin: 04/30/18 05:48 Dose: 1,000 mls Miscellaneous Medication (Pharmacy To Dose) 0 each PO DAILYPRN PRN PRN Reason: LABS Pantoprazole Sodium (Protonix) 40 mg PO QAM [facility] Last Admin: 04/30/18 09:13 Dose: 40 mg Sodium Chloride (Flush - Normal Saline) 10 ml IVF Q12HR [facility] Last Admin: 04/30/18 09:13 Dose: Not Given Sodium Chloride (Flush - Normal Saline) 10 ml IVF PRN PRN PRN Reason: Saline Flush
[2018-04-30] MEDS ORDERED: Warfarin Sodium 5 MG TAB PO SCH ×2 (17:00→17:15)
[2018-04-30] MEDS: Atorvastatin Calcium 20 MG TAB PO SCH (19:59)
[2018-05-01 06:23] LABS: #Eosinphils 0.3 thou/uL (0.0-0.7); #Monocytes 0.7 thou/uL (0.11-0.59); #Neutrophils 3.9 thou/uL (1.40-6.50); %Basophils 0.3 % (0.0-1.0); %Eosinophils 4.4 % (0.0-10.0); %Lymphocytes 28.3 % (21.0-51.0); %Monocytes 10.2 % (0.0-10.0); %Neutrophils 56.9 % (42.0-75.0); Hemoglobin 10.3 g/dL (14.0-18.0); Mean Corpuscular Hemoglobin 33.6 pg (27.0-31.0); Mean Platelet Volume 8.7 fL (7.4-10.4); Platelet Count 130 thou/uL (130-400); RBC Distribution Width 11.5 % (11.5-14.5); Red Blood Cell (RBC) Count 3.06 mill/uL (4.70-6.10); White Blood Cell (WBC) Count 6.9 thou/uL (4.8-10.8)
[2018-05-01 06:34] LABS: INR-International Normal Ratio 2.2; Prothrombin Time 24.1 SEC (12.0-14.7)
[2018-05-01 06:44] LABS: Anion Gap 13 mmol/L (10-20); BUN (Urea Nitrogen) 37 mg/dL (8.4-25.7); Calc. Creatinine Clearance 52 mL/min (70-130); Carbon Dioxide 17 mmol/L (23-31); Chloride 116 mmol/L (98-107); Estimated GFR-MDRD 48; Glucose 81 mg/dL (83-110); Potassium 4.5 mmol/L (3.5-5.1); Sodium 141 mmol/L (136-145)
[2018-05-01] MEDS: Carvedilol 25 MG TAB PO SCH ×2 (08:08→20:30)
[2018-05-01] MEDS: Sodium Chloride 0.9% 1,000 ML IV SCH (08:13)
--- NOTE | 2018-05-01 10:44 | PRG ---
DATE OF SERVICE: 05/01/2018 SUBJECTIVE: An 87-year-old gentleman being seen for acute kidney injury. The patient denies nausea, vomiting, or chest pain. OBJECTIVE: GENERAL: The patient is awake and alert. VITAL SIGNS: Afebrile, pulse 67, breathing 16, and blood pressure 122/67. GENERAL APPEARANCE AND MENTAL STATUS: Fair. HEAD/NECK: Normocephalic. Atraumatic. EYES: EOMI. No deformity. EARS: Clear. No ulcers. NOSE: Intact. No lesions. MOUTH: Clear. No discharge. THROAT: Clear. No exudate. LUNGS: Clear. No crackles. CARDIAC: S1, S2. No rub. ABDOMEN: Benign. Bowel sounds positive. GENITALIA/RECTUM: Sarah absent. BACK/EXTREMITIES: Edema 0+. NEUROLOGICAL: Alert and motor intact. SKIN: LYMPHATICS: LABORATORY DATA: Labs show hemoglobin 10.3. Creatinine 1.4. ASSESSMENT AND PLAN: 1. Acute kidney disease, resolved. 2. Hypertension, stable. 3. Anemia, stable. 4. Medication based on GFR appropriate. Renal function is pretty close to baseline. Job ID: [id number]
--- NOTE | 2018-05-01 12:29 | PDOC.CTH ---
Cardiology Progress Note - Subjective The pt seen and examined. No overnight events. No cardiac complaints. He would like to stay on Coumadin. - Objective Vital Signs Temp Pulse Resp BP Pulse Ox 05/01/18 07:30 97.7 F 67 22 H 122/67 94 L 05/01/18 04:00 98.2 F 61 20 114/67 92 L Weight 210 lb 04/30/18 05/01/18 05/02/18 06:59 06:59 06:59 Intake Total 1200 Output Total 200 1150 Balance -200 50 - Physical Examination General/Neuro: alert & oriented x3 Neck: no JVD present Lungs: CTA Heart: other: (irregualar) Abdomen: soft Extremities: other: (No edema) - Labs Result Diagrams: 05/01/18 05:16 05/01/18 05:16 Troponin/CKMB Troponin I 0.016 ng/mL (< 0.028) 04/28/18 22:15 - Assessment/Plan 1. Chronic Afib with Coumadin - Holding Coumaidn at this moment; On ASA 81mg qd for now. Will resume Coumadin when INR < 2.0. 2. Chronic combined HF - stable with coreg, but not STAR/ARB 2/2 hx of CKD. May resume Lasix when VS is more stable. 3. hx of BiV PM placement 4. CKD stage 3 - improving 5. HTN - stable 6. Hyperlipidemia - on Statin 7. Anemia - MAR reviewed Review of Systems - Review of Systems Constitutional: reports: no symptoms reported EENTM: reports: no symptoms reported Respiratory: reports: no symptoms reported Cardiac (ROS): reports: no symptoms reported ABD/GI: reports: no symptoms reported : reports: no symptoms reported Musculoskeletal: reports: no symptoms reported Skin: reports: no symptoms reported
--- NOTE | 2018-05-01 16:54 | PDOC.PN ---
- Subjective Encounter Start Date: 05/01/18 Encounter Start Time: 09:00 Pt seen for followup re: acute on chronic renal failure. feels better. - Objective Resuscitation Status - Order Detail: 04/29/18 12:42 Resuscitation Status Routine Resuscitation Status: FULL: Full Resuscitation Discussed with: patient MARIE Reviewed: Yes Vital Signs & Weight: Vital Signs (12 hours) Temp Pulse Resp BP Pulse Ox 05/01/18 16:00 98.1 F 59 L 16 115/64 93 L 05/01/18 12:39 97.2 F L 64 20 118/75 96 05/01/18 07:30 97.7 F 67 22 H 122/67 94 L Weight Weight 210 lb I&O: 04/30/18 05/01/18 05/02/18 06:59 06:59 06:59 Intake Total 1200 Output Total 200 1150 Balance -200 50 Result Diagrams: 05/01/18 05:16 05/01/18 05:16 Additional Labs: labs reviewed by me Phys Exam - Physical Examination Constitutional: NAD HEENT: moist MMs Neck: supple Respiratory: clear to auscultation bilateral Cardiovascular: RRR Gastrointestinal: soft Neurological: moves all 4 limbs Psychiatric: normal affect Deviation from normal: bruises Dx/Plan (1) Acute worsening of stage 3 chronic kidney disease Code(s): N18.3 - CHRONIC KIDNEY DISEASE, STAGE 3 (MODERATE) Status: Acute Comment: Improved significantly, GFR 48 today (2) Falls Code(s): W19.XXXA - UNSPECIFIED FALL, INITIAL ENCOUNTER Status: Acute Comment: PT/OT eval/tx- follow recs (3) Chronic a-fib Code(s): I48.2 - CHRONIC ATRIAL FIBRILLATION Status: Chronic Comment: on warfarin (4) Hyperlipidemia Code(s): E78.5 - HYPERLIPIDEMIA, UNSPECIFIED Status: Chronic Comment: on statin (5) Hypertension Code(s): I10 - ESSENTIAL (PRIMARY) HYPERTENSION Status: Chronic Qualifiers: Hypertension type: essential hypertension Qualified Code(s): I10 - Essential (primary) hypertension Comment: controlled - Plan * . Consulted urology because of concern re: hemorrhage into adrenal myelolipoma. Review of Systems - Review of Systems Cardiovascular: negative: chest pain, palpitations, orthopnea, paroxysmal nocturnal dyspnea, edema, light headedness Gastrointestinal: negative: Nausea, Vomiting, Abdominal Pain, Diarrhea, Constipation, Melena, Hematochezia - Medications/Allergies Allergies/Adverse Reactions: Allergies Allergy/AdvReac Type Severity Reaction Status Date / Time No Known Allergies Allergy Verified 04/29/18 02:12 Medications: Current Medications Acetaminophen (Tylenol) 650 mg PO Q4H PRN PRN Reason: Headache/Fever/Mild Pain (1-3) Acetaminophen (Tylenol) 650 mg [place] Q4H PRN PRN Reason: Headache/Fever/Mild Pain (1-3) Aspirin (Aspirin Chewable) 81 mg PO HS [facility] Last Admin: 04/30/18 19:59 Dose: 81 mg Atorvastatin Calcium (Lipitor) 20 mg PO HS [facility] Last Admin: 04/30/18 19:59 Dose: 20 mg Carvedilol (Coreg) 12.5 mg PO BID [facility] Last Admin: 05/01/18 08:08 Dose: 12.5 mg Sodium Chloride (Normal Saline 0.9%) 1,000 mls @ 70 mls/hr IV .[id number] [facility] Last Admin: 05/01/18 08:13 Dose: 1,000 mls Miscellaneous Medication (Pharmacy To Dose) 0 each PO DAILYPRN PRN PRN Reason: LABS Pantoprazole Sodium (Protonix) 40 mg PO QAM [facility] Last Admin: 05/01/18 08:08 Dose: 40 mg Sodium Chloride (Flush - Normal Saline) 10 ml IVF Q12HR [facility] Last Admin: 05/01/18 08:08 Dose: Not Given Sodium Chloride (Flush - Normal Saline) 10 ml IVF PRN PRN PRN Reason: Saline Flush Warfarin Sodium (Coumadin) 2.5 mg PO KittyTBlaine [facility] Last Admin: 05/01/18 16:37 Dose: 2.5 mg Warfarin Sodium (Coumadin) 5 mg PO We [facility] Last Admin: 04/30/18 18:53 Dose: 5 mg
[2018-05-01] MEDS ORDERED: Warfarin Sodium 2.5 MG TAB PO SCH (17:15)
[2018-05-01] MEDS: Atorvastatin Calcium 20 MG TAB PO SCH (20:30)
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
[2018-05-02] MEDS: Sodium Chloride 0.9% 1,000 ML IV SCH ×2 (03:19→18:36)
--- NOTE | 2018-05-02 08:01 | PDOC.CTH ---
Cardiology Progress Note - Subjective The pt seen and examined. No overnight events. No cardiac complaints. He would like to stay on Coumadin. - Objective Vital Signs Temp Pulse Resp BP BP Pulse Ox 05/02/18 07:13 99.1 F 58 L 16 132/75 96 05/01/18 20:00 99.4 F 60 18 109/66 94 L Weight 210 lb 05/01/18 05/02/18 05/03/18 06:59 06:59 06:59 Intake Total 1200 Output Total 1150 Balance 50 - Physical Examination General/Neuro: alert & oriented x3 Neck: no JVD present Lungs: CTA Heart: RRR Abdomen: soft Extremities: other: (No edema) - Labs Result Diagrams: 05/02/18 07:57 05/02/18 07:57 Troponin/CKMB Troponin I 0.016 ng/mL (< 0.028) 04/28/18 22:15 - Assessment/Plan 1. Chronic Afib with Coumadin - Holding Coumaidn at this moment; On ASA 81mg qd for now. Will resume Coumadin when INR < 2.0. 2. Chronic combined HF - stable with coreg, but not STAR/ARB 2/2 hx of CKD. Will resume Lasix 20mg qd (instead of BID for now) when he is ready to d/c. 3. hx of BiV PM placement 4. CKD stage 3 - improving 5. HTN - stable 6. Hyperlipidemia - on Statin 7. Anemia - stable 8. Adrenal myelolipoma - another CT today; managed by urologist. MAR reviewed * From Cardiac standpoint, the pt is stable to D/c home. Will f/u with Dr Duenas office within 2-4 wks. * Will resume Lasix 20mg qd (instead of BID for now) when he is ready to d/c. Pt. seen and eval. by me. I agree with the A/p by the PACKING ROOM SUPERVISOR. Woukld suggest an INR 1.8-2.5 to decrease the risk of bleed. Exam unchanged. Review of Systems - Review of Systems Constitutional: reports: no symptoms reported EENTM: reports: no symptoms reported Respiratory: reports: no symptoms reported Cardiac (ROS): reports: no symptoms reported ABD/GI: reports: no symptoms reported : reports: no symptoms reported
[2018-05-02 08:28] LABS: #Eosinphils 0.3 thou/uL (0.0-0.7); #Lymphocytes 1.8 thou/uL (1.20-3.40); #Monocytes 0.7 thou/uL (0.11-0.59); #Neutrophils 4.6 thou/uL (1.40-6.50); %Basophils 0.4 % (0.0-1.0); %Eosinophils 3.7 % (0.0-10.0); %Monocytes 9.8 % (0.0-10.0); %Neutrophils 62.1 % (42.0-75.0); Hemoglobin 10.7 g/dL (14.0-18.0); Mean Corpuscular HGB CONC 31.6 g/dL (32.0-36.0); Mean Corpuscular Hemoglobin 32.3 pg (27.0-31.0); Mean Platelet Volume 8.1 fL (7.4-10.4); Platelet Count 144 thou/uL (130-400); RBC Distribution Width 11.2 % (11.5-14.5); White Blood Cell (WBC) Count 7.4 thou/uL (4.8-10.8)
[2018-05-02 08:39] LABS: INR-International Normal Ratio 2.1; Prothrombin Time 23.6 SEC (12.0-14.7)
[2018-05-02 08:44] LABS: Anion Gap 12 mmol/L (10-20); BUN (Urea Nitrogen) 27 mg/dL (8.4-25.7); Calc. Creatinine Clearance 58 mL/min (70-130); Calcium 8.3 mg/dL (7.8-10.44); Carbon Dioxide 17 mmol/L (23-31); Chloride 116 mmol/L (98-107); Estimated GFR-MDRD 55; Glucose 85 mg/dL (83-110); Potassium 4.6 mmol/L (3.5-5.1); Sodium 140 mmol/L (136-145)
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
[2018-05-02] MEDS: Carvedilol 25 MG TAB PO SCH ×2 (09:14→21:07)
--- NOTE | 2018-05-02 12:31 | PDOC.PN ---
- Subjective Encounter Start Date: 05/02/18 Encounter Start Time: 12:29 Subjective: feels well. no pain.wants to go home - Objective Resuscitation Status - Order Detail: 04/29/18 12:42 Resuscitation Status Routine Resuscitation Status: FULL: Full Resuscitation Discussed with: guerline SALAZAR Reviewed: Yes Vital Signs & Weight: Vital Signs (12 hours) Temp Pulse Resp BP Pulse Ox 05/02/18 11:09 98.3 F 59 L 18 109/68 96 05/02/18 08:00 96 05/02/18 07:13 99.1 F 58 L 16 132/75 96 Weight Weight 210 lb I&O: 05/01/18 05/02/18 05/03/18 06:59 06:59 06:59 Intake Total 1200 Output Total 1150 Balance 50 Result Diagrams: 05/02/18 07:57 05/02/18 07:57 Additional Labs: Laboratory Tests 04/28/18 04/28/18 04/29/18 22:15 22:15 00:30 INR 2.2 Creatinine 3.06 H 2.82 H 04/29/18 04/30/18 04/30/18 16:20 07:36 07:36 INR 2.3 Creatinine 2.63 H 2.04 H 05/01/18 05/01/18 05/02/18 05:16 05:16 07:57 INR 2.2 2.1 Creatinine 1.41 H 05/02/18 07:57 INR Creatinine 1.25 Radiology Reviewed by me: Yes (CT- Adrenal mass slightly bigger) Phys Exam - Physical Examination Constitutional: NAD HEENT: PERRLA, moist MMs, sclera anicteric, oral pharynx no lesions Neck: no nodes, no JVD, supple, full ROM Respiratory: no wheezing, no rales, no rhonchi, clear to auscultation bilateral Cardiovascular: RRR, no significant murmur, no rub Gastrointestinal: soft, non-tender, no distention, positive bowel sounds Musculoskeletal: no edema, pulses present Neurological: non-focal, normal sensation, moves all 4 limbs Psychiatric: normal affect, A&O x 3 Skin: no rash Dx/Plan (1) Myelolipoma of right adrenal gland Code(s): D17.79 - BENIGN LIPOMATOUS NEOPLASM OF OTHER SITES Status: Acute Comment: Slightly bigger on repeat CT today.? 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, continue ASA, Lipitor, Coreg (5) H/O cardiac pacemaker Code(s): Z95.0 - PRESENCE OF CARDIAC PACEMAKER Status: Chronic (6) Hyperlipidemia Code(s): E78.5 - HYPERLIPIDEMIA, UNSPECIFIED Status: Chronic Comment: on statin (7) Hypertension Code(s): I10 - ESSENTIAL (PRIMARY) HYPERTENSION Status: Chronic Qualifiers: Hypertension type: essential hypertension Qualified Code(s): I10 - Essential (primary) hypertension Comment: controlled (8) Macrocytic anemia Code(s): D53.9 - NUTRITIONAL ANEMIA, UNSPECIFIED Status: Chronic (9) Obesity (BMI 30-39.9) Code(s): E66.9 - OBESITY, UNSPECIFIED Status: Chronic (10) Sick sinus syndrome Code(s): I49.5 - SICK SINUS SYNDROME Status: Chronic Comment: has PPM - Plan PT/OT, out of bed/ambulate, DVT proph w/SCDs hold coumadin.INR 2.1 today,supect mild hemorrhage in adrenal tumor -: await final urology recs -: renal fx imrpving -: declines rehab.[facility] sent referral for DC -: H/H stable. monitor. HD stable as well * . Review of Systems - Review of Systems Constitutional: negative: fever, chills, sweats, weakness, malaise, other ENT: negative: Ear Pain, Ear Discharge, Nose Pain, Nose Discharge, Nose Congestion, Mouth Pain, Mouth Swelling, Throat Pain, Throat Swelling, Other Respiratory: negative: Cough, Dry, Shortness of Breath, Hemoptysis, SOB with Excertion, Pleuritic Pain, Sputum, Wheezing Cardiovascular: negative: chest pain, palpitations, orthopnea, paroxysmal nocturnal dyspnea, edema, light headedness, other Gastrointestinal: negative: Nausea, Vomiting, Abdominal Pain, Diarrhea, Constipation, Melena, Hematochezia, Other Genitourinary: negative: Dysuria, Frequency, Incontinence, Hematuria, Retention , Other Musculoskeletal: negative: Neck Pain, Shoulder Pain, Arm Pain, Back Pain, Hand Pain, Leg Pain, Foot Pain, Other Neurological: negative: Weakness, Numbness, Incoordination, Change in Speech, Confusion, Seizures, Other - Medications/Allergies Allergies/Adverse Reactions: Allergies Allergy/AdvReac Type Severity Reaction Status Date / Time No Known Allergies Allergy Verified 04/29/18 02:12 Medications: Current Medications Acetaminophen (Tylenol) 650 mg PO Q4H PRN PRN Reason: Headache/Fever/Mild Pain (1-3) Acetaminophen (Tylenol) 650 mg PA Q4H PRN PRN Reason: Headache/Fever/Mild Pain (1-3) Aspirin (Aspirin Chewable) 81 mg PO [facility] Last Admin: 05/01/18 20:30 Dose: 81 mg Atorvastatin Calcium (Lipitor) 20 mg PO [facility] Last Admin: 05/01/18 20:30 Dose: 20 mg Carvedilol (Coreg) 12.5 mg PO BID [facility] Last Admin: 05/02/18 09:14 Dose: 12.5 mg Sodium Chloride (Normal Saline 0.9%) 1,000 mls @ 70 mls/hr IV .[id number] [facility] Last Admin: 05/02/18 03:19 Dose: Not Given Miscellaneous Medication (Pharmacy To Dose) 0 each PO DAILYPRN PRN PRN Reason: LABS Pantoprazole Sodium (Protonix) 40 mg PO QAM [facility] Last Admin: 05/02/18 09:14 Dose: 40 mg Sodium Chloride (Flush - Normal Saline) 10 ml IVF Q12HR [facility] Last Admin: 05/02/18 09:16 Dose: 10 ml Sodium Chloride (Flush - Normal Saline) 10 ml IVF PRN PRN PRN Reason: Saline Flush
[2018-05-02] MEDS: Atorvastatin Calcium 20 MG TAB PO SCH (21:07)
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
[2018-05-03] MEDS: Sodium Chloride 0.9% 1,000 ML IV SCH (06:34)
[2018-05-03] MEDS: Carvedilol 25 MG TAB PO SCH (08:29)
--- NOTE | 2018-05-03 13:07 | EKG ---
Test Reason : Blood Pressure : / mmHG Vent. Rate : 085 BPM Atrial Rate : 085 BPM P-R Int : 128 ms QRS Dur : 138 ms QT Int : 456 ms P-R-T Axes : 061 259 054 degrees QTc Int : 542 ms Electronic ventricular pacemaker Confirmed by GLORIA COLEMAN ([id number]), photo editor REYNALDO MASON ([id number]) on 05/03/2018 1:06:43 PM Referred By: Confirmed By:GLORIA COLEMAN
--- NOTE | 2018-05-03 14:57 | DIS ---
DATE OF ADMISSION: 04/29/2018 DATE OF DISCHARGE: 05/03/2018 CONDITION: At the time of discharge, stable and improved. DISCHARGE DISPOSITION: Home with home health. PRIMARY CARE PHYSICIAN: Brittni High PA-C IN-HOUSE CONSULTATION: 1. Cardiology, Dr. Duenas. 2. Nephrology, Dr. Bedolla. 3. Urology, Dr. Casanova. DISCHARGE DIAGNOSES: 1. Adrenal myelolipoma, stable. 2. Acute on chronic kidney disease. 3. Chronic atrial fibrillation, on chronic warfarin. 4. Demand ischemia. 5. Hypertension. 6. Dyslipidemia. 7. History of chronic macrocytic anemia. 8. History of sick sinus syndrome, status post pacemaker placement. DISCHARGE MEDICATIONS: Discharge medications remain the same as admission medication. Warfarin was briefly held, but was restarted at home dosages. Home medications are as follows, which he is going to restart; 1. Protonix 40 mg daily. 2. Aspirin 81 mg daily. 3. Lisinopril 20 mg b.i.d. 4. Coreg 12.5 b.i.d. 5. Atorvastatin 20 mg daily. 6. Warfarin half tablet daily except for Saturday when he takes 5 mg. 7. Lasix 20 mg daily. Please note that the Lasix dose has been reduced from b.i.d. to once a day. PROCEDURES DONE IN HOSPITAL: 1. CT scan of the abdomen and pelvis on 04/28/2018, which shows interval growth of the right adrenal myelolipoma with questionable internal hemorrhage and gynecomastia. 2. Repeat CT scan on 05/02/2018, which shows stable appearance of adrenal myelolipoma according to Dr. Casanova from Urology. The radiologist did read it as a little bit bigger than the first one by about 1 cm. HISTORY OF PRESENT ILLNESS: Mr. 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 He was seen at [facility] and had some sutures placed on his skin tear in the arm and was sent home. Later, he developed extreme weakness and was brought into the emergency room at [place]. Upon presentation, he was awake and alert, somewhat hypotensive with blood pressure of 91/57. He underwent EKG, which did not show any acute coronary syndrome. Noncontrast CT scan of the brain did not show any acute abnormality. An x-ray of the pelvis did not show any acute fractures. He underwent a CT scan of the abdomen and pelvis as well, which showed this adrenal myelolipoma, which was chronic in nature, but there was some concern about it growing in size with possible internal hemorrhage. He was admitted for further investigation. He was also found to have acute kidney injury with a BUN of 57 and creatinine of 2.73. Last known creatinine was 1.92 in April 2018. Please see admission history and physical for further details. HOSPITAL COURSE: The patient was started on IV fluids and Nephrology was consulted. His renal function improved spontaneously without any specific intervention with IV fluids. Dr. Fuller saw the patient. Cardiology was also consulted with concerns of anticoagulation and multiple falls and possible hemorrhage in the adrenal myelolipoma. Dr. Duenas followed the patient along and recommended that he can be restarted on Coumadin after a urological evaluation. His Lasix dose was reduced to daily once. Dr. Casanova saw the patient from Urology and CT scan was repeated, but did not really show any enlargement. His H and H have also remained stable in the hospitalization and the patient was completely asymptomatic. He had no signs or symptoms to suggest that his adrenal myelolipoma is getting bigger or is having an active hemorrhage. Dr. Casanova recommended restarting the Coumadin and signed off. As of this morning, the patient is very eager to go home and is feeling very well and has no complaints whatsoever. He has home health setup, which they will resume. He follows up with Coumadin clinic for his INR checkup. His INR this morning is 2, and he will follow up with them early next week. Discharge plan was discussed with the patient in detail and he verbalized understanding and repeated the instructions back to me. He was seen and examined prior to discharge. PHYSICAL EXAMINATION: VITAL SIGNS: This morning, temperature 97.8, pulse of 60, respirations 18, saturating 98% on room air, and blood pressure 146/71. GENERAL: No acute distress. Awake, alert, and oriented x3. CHEST: Clear to auscultation bilaterally. NEUROLOGICAL: Nonfocal. LABORATORY DATA: His hemoglobin at the time of discharge is 10.7, which was 11.9 upon presentation. His serum creatinine in 1.25, which was 3.06 upon presentation. TOTAL TIME SPENT: 35 minutes. Job ID: [id number]
[2018-05-03 19:50] VITALS: BP 140/71; TEMP 97.4
== END 2018-05-03 13:23 | disposition home health service (06) | DRG 683 ==
LOC: ERS 22:10 → T4-A 04-29 00:10
PROVIDERS: ADMIT Internal Medicine; ATTEND Internal Medicine
DX: N17.9 Acute kidney failure, unspecified (principal); I13.0 Hypertensive heart and chronic kidney disease with heart failure and stage 1 through stage 4 chronic kidney disease, or unspecified chronic kidney disease; I50.42 Chronic combined systolic (congestive) and diastolic (congestive) heart failure; I49.5 Sick sinus syndrome; D17.79 Benign lipomatous neoplasm of other sites; I48.2 Chronic atrial fibrillation; N18.3 Chronic kidney disease, stage 3 (moderate); E78.5 Hyperlipidemia, unspecified; D53.9 Nutritional anemia, unspecified; E86.0 Dehydration; E66.9 Obesity, unspecified; Z68.31 Body mass index [BMI] 31.0-31.9, adult; Z79.82 Long term (current) use of aspirin; Z79.01 Long term (current) use of anticoagulants; Z96.642 Presence of left artificial hip joint; Z95.810 Presence of automatic (implantable) cardiac defibrillator
CPT/HCPCS: 36415; 70450; 71045; 72170; 74150; 74177; 80048; 80053; 82150; 82550; 83735; 84484; 85025; 85610; 85730; 86850; 86900; 86901; 93005; 96360; 96361; 99283

== ENCOUNTER 2019-08-27 05:44 | Outpatient (CLI) | payer MEDICARE, OTHER ==
[2019-08-27 11:12] LABS: INR-International Normal Ratio 3.1
[2019-08-27 11:26] LABS: #Eosinphils 0.2 thou/uL (0.0-0.7); #Lymphocytes 1.2 thou/uL (1.20-3.40); #Monocytes 0.8 thou/uL (0.11-0.59); #Neutrophils 4.8 thou/uL (1.40-6.50); %Basophils 0.5 % (0.0-1.0); %Eosinophils 3.3 % (0.0-10.0); %Lymphocytes 16.3 % (21.0-51.0); %Monocytes 11.4 % (0.0-10.0); %Neutrophils 68.5 % (42.0-75.0); Hemoglobin 11.6 g/dL (14.0-18.0); Mean Corpuscular HGB CONC 31.3 g/dL (32.0-36.0); Mean Corpuscular Hemoglobin 33.1 pg (27.0-31.0); Mean Platelet Volume 8.3 fL (7.4-10.4); Platelet Count 168 thou/uL (130-400); RBC Distribution Width 12.2 % (11.5-14.5); White Blood Cell (WBC) Count 7.1 thou/uL (4.8-10.8)
[2019-08-27 11:28] LABS: Anion Gap 13 mmol/L (10-20); BUN (Urea Nitrogen) 49 mg/dL (8.4-25.7); Calc. Creatinine Clearance 0 mL/min (70-130); Calcium 8.9 mg/dL (7.8-10.44); Carbon Dioxide 21 mmol/L (23-31); Chloride 109 mmol/L (98-107); Estimated GFR-MDRD 28; Glucose 130 mg/dL (83-110); Potassium 4.4 mmol/L (3.5-5.1); Sodium 139 mmol/L (136-145)
--- NOTE | 2019-08-27 17:36 | EKG ---
Test Reason : Blood Pressure : / mmHG Vent. Rate : 065 BPM Atrial Rate : 073 BPM P-R Int : 000 ms QRS Dur : 136 ms QT Int : 466 ms P-R-T Axes : 000 051 241 degrees QTc Int : 484 ms Electronic ventricular pacemaker When compared with ECG of 28-APR-2018 22:20, Vent. rate has decreased BY 20 BPM Confirmed by MAC MOORE, DR. Nowak ([id number]) on 08/27/2019 5:35:49 PM Referred By: BLANCA Confirmed By:DR. Eliu WATTS MD
[2019-08-27 18:34] LABS: SARS-CoV-2 MS2 Positive; SARS-CoV-2 N Gene Negative; SARS-CoV-2 S Gene Negative; SARS-CoV-2 orf1ab Negative
== END 2019-08-27 05:45 | disposition home or self-care (01) ==
LOC: LABBT 05:44
PROVIDERS: ATTEND Internal Medicine Cardiovascular Disease
DX: Z01.818 Encounter for other preprocedural examination (principal); Z11.59 Encounter for screening for other viral diseases; I48.0 Paroxysmal atrial fibrillation
CPT/HCPCS: 80048; 85025; 85610; 85730; 93005; U0003; 87635; 93010

== ENCOUNTER 2019-08-31 06:04 | Day surgery (SDC) | payer MEDICARE, OTHER ==
[2019-08-27 09:06] VITALS: BMI 31.3
[2019-08-31] MEDS ORDERED: PROPOFOL 20 ML ONE (06:59)
[2019-08-31] MEDS ORDERED: Lidocaine 1% PF 5 ML VIAL ONE (09:56)
--- NOTE | 2019-08-31 12:52 | DIS ---
DATE OF ADMISSION: 08/31/2019 DATE OF DISCHARGE: 08/31/2019 DATE OF OUTPATIENT PROCEDURE: 08/31/2019. ADMISSION DIAGNOSES: 1. Atrial fibrillation. 2. Cardiomyopathy. 3. History of systolic heart failure, diastolic heart failure, what appeared to be intermittent atrial fibrillation. He is status post a defibrillator placement with a change out in 2012 and he was upgraded to a Bi-V defibrillator in 2018. 4. Hypertension as well as dyslipidemia. DISCHARGE DIAGNOSES: 1. Atrial fibrillation. 2. Cardiomyopathy. 3. History of systolic heart failure, diastolic heart failure, what appeared to be intermittent atrial fibrillation. He is status post a defibrillator placement with a change out in 2012 and he was upgraded to a Bi-V defibrillator in 2018. 4. Hypertension as well as dyslipidemia. 5. He was converted from his atrial fibrillation back to sinus rhythm. PROCEDURES IN HOSPITAL: Included transesophageal echocardiogram as well as an electrocardioversion of atrial fibrillation back to sinus rhythm. DISCHARGE MEDICATIONS: Will be the same as his admission medications, they include; 1. Furosemide 40 mg a day. 2. Aspirin 81 mg a day. 3. Vitamin D3 of 5000 units once a day. 4. Atorvastatin 20 mg a day. 5. Aldactone , ? dose, daily. 6. Coreg 12.5 mg b.i.d. 7. Lisinopril 20 mg once a day. 8. Amiodarone 200 mg once a day. FOLLOWUP: His followup will be with me in 1 to 2 months in the office. He will continue to follow with the nurse intern to see them in the next 2 to 3 weeks. HOSPITAL COURSE: This is a very pleasant 89-year-old gentleman, who had a history of cardiomyopathy in the past, who had undergone a pacemaker insertion. He then due to severe decrease in left ventricular systolic function, underwent a Bi-V defibrillator placement eventually. Since that time, the ejection fraction had improved significantly from about 25% to 30% up to 50%. After the Bi-V placement, he is pacing 100% of the time. He was noted to be in atrial fibrillation and due to his history of cardiomyopathy, it was felt that he would need cardioversion if possible. He was taken to the recovery area, where he underwent short acting propofol, then a transesophageal echocardiogram was performed, which did not show any evidence of left atrial or left atrial appendage thrombus. He did then underwent a one time cardioversion of atrial fibrillation back to sinus rhythm with one shock at 200 joules and continued to have atrial pacing and ventricular pacing. If he remains stable, he will be discharged home in the next 1 to 2 hours. Job ID: [id number] MTDD
--- NOTE | 2019-08-31 21:09 | EKG ---
Test Reason : POST CARDIOVERSION Blood Pressure : / mmHG Vent. Rate : 060 BPM Atrial Rate : 060 BPM P-R Int : 000 ms QRS Dur : 140 ms QT Int : 506 ms P-R-T Axes : 000 237 080 degrees QTc Int : 506 ms AV sequential or dual chamber electronic pacemaker When compared with ECG of 27-AUG-2019 09:22, Vent. rate has decreased BY 5 BPM Confirmed by Jose RIOS ([id number]) on 08/31/2019 9:09:34 PM Referred By: BLANCA Confirmed By:Jose RIOS
--- NOTE | 2019-09-01 15:35 | OP ---
DATE OF PROCEDURE: 08/31/19 SURGEON: Majo Duenas M.D. PROCEDURE: Electrical cardioversion INDICATION FOR PROCEDURE: This is an 89-year-old gentleman with a history of cardiomyopathy which improved after implantation o f a BiV AICD. He was found to have atrial fibrillation and was advised to undergo electrical cardiove rsion of atrial fibrillation back to sinus rhythm. CARDIOVERSION The patient was taken to the recovery area where he underwent two different procedures. A transesopha geal echocardiogram prior to the procedure. He was given short acting propofol and the transesophagea l probe was easily passed down the distal esophagus. IMPRESSION: 1. Essentially normal ejection fraction which appears to be about 50-55%. 2. No evidence of left atrial or left atrial appendage thrombus with flow in the left atrial mario endage of more than 0.5 cm/s. 3. There is mild to moderate mitral valve regurgitation. Trace to mild tricuspid valve regurgita tion. Also mild aortic valve regurgitation was noted. There was very mild aortic valve sclerosis note d. 4. The left atrium was mildly dilated. There was no evidence of left atrial thrombus or smoke fo rmation. 5. There was a small patent foramen ovale noted with a left to right shunt. 6. No intracardiac thrombi, mass or vegetations were noted. There are also AICD leads noted in t he right ventricle and right atrium but without evidence of vegetation. ELECTRICAL CARDIOVERSION INDICATIONS: Atrial fibrillation in elderly gentleman with cardiomyopathy. He underwent transesophageal echocardio gram to rule out evidence of intracardiac thrombi or mass or vegetations. After the transesophageal e chocardiogram showed no evidence of left atrial or left atrial appendage thrombus and no other signif icant abnormalities, he underwent one attempt at 200 joules and was successfully converted from his a trial fibrillation back to normal sinus rhythm. No complications or difficulties were encountered. He was pacing in the end, in sinus rhythm, but he had atrial pacing and ventricular pacing.
== END 2019-08-31 09:15 | disposition home or self-care (01) ==
LOC: CCL 06:04
PROVIDERS: ATTEND Internal Medicine Cardiovascular Disease
PROC: B24BZZ4 Ultrasonography of Heart with Aorta, Transesophageal (ICD-10-PCS; principal; 2019-08-31)
PROC: 5A2204Z Restoration of Cardiac Rhythm, Single (ICD-10-PCS; 2019-08-31)
DX: I48.0 Paroxysmal atrial fibrillation (principal); I42.9 Cardiomyopathy, unspecified; I08.0 Rheumatic disorders of both mitral and aortic valves; I35.0 Nonrheumatic aortic (valve) stenosis; Q21.1 Atrial septal defect; M19.90 Unspecified osteoarthritis, unspecified site; I13.2 Hypertensive heart and chronic kidney disease with heart failure and with stage 5 chronic kidney disease, or end stage renal disease; N18.9 Chronic kidney disease, unspecified; I50.42 Chronic combined systolic (congestive) and diastolic (congestive) heart failure; D63.1 Anemia in chronic kidney disease; E78.2 Mixed hyperlipidemia; F17.290 Nicotine dependence, other tobacco product, uncomplicated; Z79.82 Long term (current) use of aspirin; Z79.899 Other long term (current) drug therapy; Z95.810 Presence of automatic (implantable) cardiac defibrillator
CPT/HCPCS: 92960; 93005; 93010; 93312; 99212; G0463; J2001; J2704

== ENCOUNTER 2021-06-14 09:08 | Emergency (ER) | payer MEDICARE, OTHER | END 2021-06-14 10:53 | disposition home or self-care (01) | LOC: ERS 09:08 | DX: M25.552 Pain in left hip (principal); I48.91 Unspecified atrial fibrillation; E78.5 Hyperlipidemia, unspecified; I11.0 Hypertensive heart disease with heart failure; I50.9 Heart failure, unspecified; Z79.01 Long term (current) use of anticoagulants; Z79.899 Other long term (current) drug therapy | CPT/HCPCS: 72170; 72192 ==

== ENCOUNTER 2021-06-16 09:29 | Emergency (ER) | payer MEDICARE, OTHER | END 2021-06-16 15:23 | disposition home or self-care (01) | LOC: ERS 09:29 | DX: S32.10XA Unspecified fracture of sacrum, initial encounter for closed fracture (principal); W19.XXXA Unspecified fall, initial encounter; Z79.899 Other long term (current) drug therapy; Z79.01 Long term (current) use of anticoagulants; I48.91 Unspecified atrial fibrillation; E78.5 Hyperlipidemia, unspecified; I11.0 Hypertensive heart disease with heart failure; I50.9 Heart failure, unspecified | CPT/HCPCS: 99283 ==